=== PATIENT | male | born 1960 | race Caucasian/White ===

== ENCOUNTER 2022-02-28 10:26 | Outpatient (RCR) | payer BC, SELFPAY | END 2022-04-20 14:37 | disposition home or self-care (01) | PROVIDERS: PCP Family Medicine; Visit Provider Surgery | DX: M25.562 Pain in left knee (principal); Z51.89 Encounter for other specified aftercare | CPT/HCPCS: 97110; 97162 ==

== ENCOUNTER 2023-08-15 08:29 | Outpatient (CLI) | payer MEDICARE, BC, SELFPAY ==
--- OUTSIDE RECORDS SUMMARY | 2023-08-15 08:34 | XMS_ITS | Clinical Summary ---
Author Name Unknown Organization [address] [facility] Address [place], [place] [address] Care Team Providers Care Jet Blade Polisher Name Role Phone Matthew Lo MD Primary Care Provider [phone] Ihsan Arriaza MD Unavailable [phone] Allergies Active Allergy Reactions Criticality Noted Date Comments Mold Runny Nose 12/26/2017 Pollen Extracts Runny Nose 12/26/2017 Medications Medication Sig Dispensed Refills Start Date End Date Status FLONASE 50 MCG/ACTUATION NASAL SPRAYIndications:Domo rgic rhinitis, cause unspecified 2 spray in each nostril daily 3 5 05/01/2009 Active cholecalciferol (VITAMIN D3) 2,000 unit capsuleIndications:Vi tamin D deficiency,B12 deficiency Take 1 Capsule (2,000 units) by mouth once daily. 100 Capsule 3 12/27/2020 Active cyanocobalamin (Vitamin B-12) 1,000 mcg tabletIndications:B12 deficiency Take 1 Tablet (1,000 mcg) by mouth once daily. 100 Tablet 3 12/27/2020 Active albuterol HFA (PRO-AIR; VENTOLIN; PROVENTIL) 90 mcg/actuation inhalerIndications:Mi ld intermittent asthma without complication Inhale 1-2 Puffs by mouth every 4 hours if needed for Shortness Of Breath. 8.5 g 3 04/01/2022 Active atorvastatin (LIPITOR) 20 mg tabletIndications:Hyp erlipidemia, unspecified hyperlipidemia type Take 1 Tablet (20 mg) by mouth once daily. 90 Tablet 3 04/01/2022 Active fluticasone propion-salmeteroL (Advair Diskus) 100-50 mcg/dose diskus inhalerIndications:Mi ld intermittent asthma without complication Inhale 1 Puff by mouth two times daily. 3 Each 3 04/01/2022 Active allopurinoL (ZYLOPRIM) 300 mg tabletIndications:Gou t, unspecified cause, unspecified chronicity, unspecified site Take 1 Tablet (300 mg) by mouth once daily. 90 Tablet 3 06/20/2022 Active colchicine 0.6 mg tabletIndications:Gou t, unspecified cause, unspecified chronicity, unspecified site Take 1 Tablet (0.6 mg) by mouth 2 times daily if needed for Gout Pain. 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 TSI =6.7 Gout, unspecified 07/15/2016 Overview: Attack 07/01 right 1st MTP joint. Uric acid level 8.2. Hyperlipidemia 07/04/2016 Hyperthyroidism 09/29/2015 Overview: 11/2015 thyroid scan 71% homogeneous uptake c/w graves' 11/2015 start methimazole 12/2019- d/c methimazole Screen for colon cancer 05/08/2009 Overview: Colonoscopy 04/2009 normal repeat in 10 years Allergic rhinitis, cause unspecified 12/29/2006 Unspecified asthma(493.90) 12/29/2006 Immunizations Name Administration Dates Next Due Influenza A (H1N1), Inactivated 08/03/2009 Influenza, IIV3 (Age >=3 years) 05/01/2009,06/03 Influenza, IIV4 04/01/2022,,04/26/2019,2016,05/04/2016 Influenza,CCIIV4 PRESERV FREE 04/27/2020 Pneumococcal Conj 20-valent (Prevnar 20) 04/01/2022 Pneumococcal Poly,23-Valent (Pneumovax) 03/30/2021 Td (Age >=7 Years) 04/13/2004 Tdap 11/22/2018 Zoster (Shingrix-RZV, recombinant) 12/16/2019, Family History Medical History Relation Name Comments Heart Disease Father Age 81 Ablatio n and Pacemaker Other Father of Copd an d heart at 89 Heart Disease Maternal Aunt 60s Hyperlipidemia Mother Cancer Paternal Grandmother 70s unc ertain origin Relation Name Status Comments Father Maternal Aunt Mother Paternal Grandmother Social History Tobacco Use Types Packs/Day Years Used Date Smoking Tobacco: Never Smokeless Tobacco: Never Tobacco Cessation:Counseling Given: Yes Comments:nonsmoker Alcohol Use Standard Drinks/Week Comments Yes 7 (1 standard drink = 0.6 oz pur e alcohol) daily PHQ-2 Answer Date Recorded PHQ-2 TOTAL SCORE 0 03/30/2021 Social Connections Answer Date Recorded Frequency of Communication with Friends and Fami ly Not on file 07/17/2021 Alcohol Use Answer Date Recorded How often do you have a drink containing alcohol ? 2 02/21/2022 How many drinks containing a lcohol do you have on a typical day when you are drinking? 0 02/21/2022 How often do you have five or more drinks on one occasion? 1 02/21/2022 Financial Resource Strain Answer Date R ecorded Difficulty of Paying Living Expenses Not on file 07/17/2021 Difficulty of Paying Living Expenses Not on file 07/17/2021 Sex and Gender Information Value Date Recorded Sex Assigned at Not on file Gender Identity Not on file Sexual Orientation Not on file Obstetrics History Last Filed Vital Signs Vital Sign Reading Time Taken Comments Blood Pressure 138/72 12/02/2022 9:21 AM CDT Pulse 48 12/02/2022 9:21 AM CDT Temperature 36.7 ??C (98 ??F) 01/15/2020 9:07 AM CDT Respiratory Rate 12 12/02/2022 9:21 AM CDT Oxygen Saturation 98% 04/01/2022 8:01 AM CDT Inhaled Oxygen Concentration - - Weight 95.3 kg (210 lb) 12/02/2022 9:21 AM CDT Height 172.5 cm (5' 7.91) 04/01/2022 8:01 AM CD T Body Mass Index 32.01 04/01/2022 8:01 AM CDT Plan of Treatment Upcoming Encounters Date Type Department Care Team (Late st Contact Info) Description 11/24/2023 8:45 AM CDT Office Visit [facility] [address] [place] [address] Ihsan Arriaza MD [address] [place] [address] Health Maintenance Due Date Last Done Comments HIV for age 15-65 1973 Depression screening for age 12+ 03/30/2022 03/30/2021, 05/13/2019, 07/04/2016, Additional history exists BMI (ht and wt on same day) for age 18+ 04/01/2023 04/01/2022, 03/30/2021, 01/15/2020, Additional history exists Influenza for age 65+ 2023 04/01/2022 , 03/30/2021, 04/27/2020, Additional history exists Colonoscopy through age 75 05/09/202405/09, 05/09/2019, 05/08/2009, Additional history exists Lipids for age 45-75 04/01/2027 04/01/2022, 03/30/2021, 12/16/2019, Additional history exists Tetanus booster 11/22/2028 11/22/2018, 04/13/2004 Tdap Completed 11/22/2018 Hepatitis C screening for ag e 18-79 Completed 12/16/2019 Zoster (shingles) series for age 50+ Completed 12/16/2019, 05/07/2019 COVID-19 vaccine series Completed 03/26/20 22, 10/28/2020 (Completed outside of [facility]) Pneumococcal series for age 65+ Completed 2, 03/30/2021 Care Teams Jet Blade Polisher Relationship Specialty Start Date End Date Matthew Lo MD [address] [place] [address] PCP - General Family Practice 11/21/17 Ihsan Arriaza MD [address] [place] [address] Endocrinology Endocrinology 11/30/22
--- OUTSIDE RECORDS SUMMARY | 2023-08-15 08:34 | XMS_ITS | Encounter Summary ---
Author Name Unknown Organization [facility] Address [address] [place] [address] Care Team Providers Care Fuel Cell Binder Name Role Phone Ihsan Arriaza MD Unavailable [phone] Jerod Groves MD Unavailable [phone] Skinny Ruvalcaba MD Primary Care Provider + [phone] Jacobo Ocampo MD Unavailable [phone] Encounter Details Date Type Department Care Team (Late st Contact Info) Description 04/21/2020 [facility] Op[facility]mology [address] [place] [address] Jcaobo Ocampo MD [address] [place] [address] Social History Tobacco Use Types Packs/Day Years Used Date Smoking Tobacco: Never Smokeless Tobacco: Never Alcohol Use Standard Drinks/Week Comments Yes 0 (1 standard drink = 0.6 oz pur e alcohol) rarely PHQ-2 Answer Date Recorded PHQ-2 Score 0 09/02/2019 Sex and Gender Information Value Date Recorded Sex Assigned at Not on file Gender Identity Not on file Sexual Orientation Not on file documented as of this encounter Miscellaneous Notes * Telephone Encounter - Sheree Brice RN - 04/23/2020 11:02 AM CDT [facility]- Can you please call and add patient to Monday's Dr. Ocampo schedule? Post op follow up. If he doesn't answer it's ok to [facility] with appointment info. Thanks! Sheree Brice RN RN 11:03 AM 04/23/20 documented in this encounter Plan of Treatment Not on file documented as of this encounter Visit Diagnoses Not on filedocumented in this encounter Care Teams Fuel Cell Binder Relationship Specialty Start Date End Date Skinny Ruvalcaba MD PCP - General Family Practice 05/15/17 Ihsan Arriaza MD Internal Medicine 02/05/16 Jerod Groves MD Ophthalmology 02/05/16 Jacobo Ocampo MD [address] [place] [address] Assigned Surgical Provider 05/08/20 documented as of this encounter
--- OUTSIDE RECORDS SUMMARY | 2023-08-15 08:34 | XMS_ITS | Encounter Summary ---
Author Name Unknown Organization [facility] Address [address] [facility] [place] [address] Care Team Providers Care Oil Truck Driver Name Role Phone Ihsan Arriaza MD Unavailable [phone] Jerod Groves MD Unavailable [phone] Skinny Ruvalcaba MD Primary Care Provider [phone] Jacobo Ocampo MD Unavailable [phone] Encounter Details Date Type Department Care Team (Late st Contact Info) Description 04/22/2017 [facility] Medical [facility] [address] [place] [address] [address] Jerod Groves MD [address] [place], [place] [id number] Social History Tobacco Use Types Packs/Day Years Used Date Smoking Tobacco: Never Sex and Gender Information Value Date Recorded Sex Assigned at Not on file Gender Identity Not on file Sexual Orientation Not on file documented as of this encounter Plan of Treatment Not on file documented as of this encounter Visit Diagnoses Not on filedocumented in this encounter Additional Health Concerns Infection Onset Date Last Indicated Resolved Time Rule Out COVID-19 11/16/2019 11/16/2019 11/17/2019 9:33 PM CDT documented as of this encounter Care Teams Oil Truck Driver Relationship Specialty Start Date End Date Skinny Ruvalcaba MD PCP - General Family Practice 05/15/17 Ihsan Arriaza MD Internal Medicine 02/05/16 Jerod Groves MD Ophthalmology 02/05/16 Jacobo Ocampo MD [address] [place] [address] Assigned Surgical Provider 05/08/20 documented as of this encounter
--- OUTSIDE RECORDS SUMMARY | 2023-08-15 08:34 | XMS_ITS | Encounter Summary ---
Author Name Unknown Organization [place] Address [address] [facility] [place] [address] Care Team Providers Care Men'S And Boys' Clothing Salesperson Name Role Phone Ihsan Arriaza MD Unavailable [phone] Jerod Groves MD Unavailable [phone] Skinny Ruvalcaba MD Primary Care Provider [phone] Jacobo Ocampo MD Unavailable [phone] Encounter Details Date Type Department Care Team (Late st Contact Info) Description 01/30/2018 [facility] Medical Advice [facility] [address] [place] [address] [address] Jerod Groves MD [address] [place], [place] [address] Social History Tobacco Use Types Packs/Day Years Used Date Smoking Tobacco: Never Smokeless Tobacco: Never Sex and Gender Information Value [...] documented as of this encounter Care Teams Men'S And Boys' Clothing Salesperson Relationship Specialty Start Date End Date Skinny Ruvalcaba MD PCP - General Family Practice 05/15/17 Ihsan Arriaza MD Internal Medicine 02/05/16 Jerod Groves MD Ophthalmology 02/05/16 Jacobo Ocampo MD [address] [place] [address] Assigned Surgical Provider 05/08/20 documented as of this encounter
--- OUTSIDE RECORDS SUMMARY | 2023-08-15 08:34 | XMS_ITS | Encounter Summary ---
Author Name Unknown Organization [facility] Address [address] [place] [address] Care Team Providers Care Death Claim Examiner Name Role Phone Ihsan Arriaza MD Unavailable [phone] Jerod Groves MD Unavailable [phone] Skinny Ruvalcaba MD Primary Care Provider + [phone] Jacobo Ocampo MD Unavailable [phone] Encounter Details Date Type Department Care Team (Late st Contact Info) Description 01/21/2020 [facility] [address] [place] [address] [address] [place] [address] Jacobo Ocampo MD [address] [place] [address] Social History Tobacco Use Types Packs/Day [...] on file Sexual Orientation Not on file COVID-19 Exposure Response Date Recorded In the last month, have you been in contact with someone who was confirmed or suspected to have Coronavirus / COVID-19? No / Unsure 01/13/2020 7:54 AM CDT documented as of this encounter Plan of Treatment Not on file documented as of this encounter Visit Diagnoses Not on filedocumented in this encounter Care Teams Death Claim Examiner Relationship Specialty Start Date End Date Skinny Ruvalcaba MD PCP - General Family Practice 05/15/17 Ihsan Arriaza MD Internal Medicine 02/05/16 Jerod Groves MD Ophthalmology 02/05/16 Jacobo Ocampo MD [address] [place] [address] Assigned Surgical Provider 05/08/20 documented as of this encounter
--- OUTSIDE RECORDS SUMMARY | 2023-08-15 08:34 | XMS_ITS | Encounter Summary ---
Author Name Unknown Organization [facility] Address [address] [place] [address] Care Team Providers Care Furnace Attendant Name Role Phone Ihsan Arriaza MD Unavailable [phone] Jerod Groves MD Unavailable [phone] Skinny Ruvalcaba MD Primary Care Provider + [phone] Jacobo Ocampo MD Unavailable [phone] Reason for Visit * Reason Onset Date Comments Call Back 11/20/2019 Question on surg ical aftercare Encounter Details Date Type Department Care Team (Late st Contact Info) Description 11/20/2019 Telephone [facility] Ophthalmology [address] [place] [address] Jacobo Ocampo MD [address] [place] [address] Call Back (Question on surgical aftercare) Social History Tobacco Use Types Packs/Day Years [...] have Coronavirus / COVID-19? No / Unsure 11/20/2019 6:31 AM CDT documented as of this encounter Miscellaneous Notes * Telephone Encounter - Sheree Brice RN - 11/20/2019 1:04 PM CDT Called and spoke to Annie. Verified bolster would be removed at appointment on 11/25 @ 8:15. * Telephone Encounter - Shereen Tolentino - 11/20/2019 12:40 PM CDT [facility] Call Center Phone Message May a detailed message be left on voicemail: yes Reason for Call: Other: Pt 's Nataliia requesting call from clinic. She states pt had surgery this morning and she was reading the aftercare notes, but couldn't find information on the bolster for his right eye. Nataliia wanted to clarify when and/or if the bolster should be removed; please callher mobile to discuss. Action Taken: Message routed to: [facility] Eye Travel Screening: Not Applicable documented in this encounter Plan of Treatment Not on file documented as of this encounter Visit Diagnoses Not on filedocumented in this encounter Care Teams Furnace Attendant Relationship Specialty Start Date End Date Skinny Ruvalcaba MD PCP - General Family Practice 05/15/17 Ihsan Arriaza MD Internal Medicine 02/05/16 Jerod Groves MD Ophthalmology 02/05/16 Jacobo Ocampo MD [address] [place] [address] Assigned Surgical Provider 05/08/20 documented as of this encounter
--- OUTSIDE RECORDS SUMMARY | 2023-08-15 08:34 | XMS_ITS | Encounter Summary ---
Author Name Unknown Organization [facility] Address [address] [place] [address] Care Team Providers Care Operating Room Nurse Name Role Phone Ihsan Arriaza MD Unavailable [phone] Jerod Groves MD Unavailable [phone] Skinny Ruvalcaba MD Primary Care Provider + [phone] Jacobo Ocmapo MD Unavailable [phone] Encounter Details Date Type Department Care Team (Late st Contact Info) Description 01/28/2020 [facility] [address] [place] [address] [address] [place] [address] Darlyn Monterroso RN Social History Tobacco Use Types Packs/Day Years [...] have Coronavirus / COVID-19? No / Unsure 01/29/2020 10:19 AM CDT documented as of this encounter Plan of Treatment Not on file documented as of this encounter Visit Diagnoses Not on filedocumented in this encounter Care Teams Operating Room Nurse Relationship Specialty Start Date End Date Skinny Ruvalcaba MD PCP - General Family Practice 05/15/17 Ihsan Arriaza MD Internal Medicine 02/05/16 Jerod Groves MD Ophthalmology 02/05/16 Jacobo Ocampo MD [address] [place] [address] Assigned Surgical Provider 05/08/20 documented as of this encounter
--- OUTSIDE RECORDS SUMMARY | 2023-08-15 08:34 | XMS_ITS | Encounter Summary ---
Author Name Unknown Organization [facility] Address [address] [place] [address] Care Team Providers Care Dryer Feeder Name Role Phone Ihsan Arriaza MD Unavailable [phone] Jerod Groves MD Unavailable [phone] Skinny Ruvalcaba MD Primary Care Provider + [phone] Jacobo Ocampo MD Unavailable [phone] Encounter Details Date Type Department Care Team (Late st Contact Info) Description 11/18/2019 [facility] [address] [place] [address] [address] [place] [address] Faby Carter RN Social History Tobacco Use Types Packs/Day [...] on filedocumented in this encounter Care Teams Dryer Feeder Relationship Specialty Start Date End Date Skinny Ruvaclaba MD PCP - General Family Practice 05/15/17 Ihsan Arriaza MD Internal Medicine 02/05/16 Jerod Groves MD Ophthalmology 02/05/16 Jacobo Ocampo MD [address] [place] [address] Assigned Surgical Provider 05/08/20 documented as of this encounter
--- OUTSIDE RECORDS SUMMARY | 2023-08-15 08:34 | XMS_ITS | Encounter Summary ---
Author Name Unknown Organization [facility] [place] Address [address] [place] [address] Care Team Providers Care Customer Service And Sales Consultant Name Role Phone Ihsan Arriaza MD Unavailable [phone] Jerod Groves MD Unavailable [phone] Skinny Ruvalcaba MD Primary Care Provider + [phone] Jacobo Ocampo MD Unavailable [phone] Reason for Visit * Reason Onset Date Comments Appointment 03/02/2018 Pt new or return ? Encounter Details Date Type Department Care Team ([facility] st Contact Info) Description 03/02/2018 [facility] Ophthalmology [address] [place] [address] Jacobo Ocampo MD [address] [place] [address] Appointment (Pt new or return?) Social History Tobacco Use Types Packs/Day Years Used Date Smoking Tobacco: Never Smokeless Tobacco: Never Sex and Gender Information Value Date Recorded Sex Assigned at Not on file Gender Identity Not on file Sexual Orientation Not on file documented as of this encounter Miscellaneous Notes * Telephone Encounter - Tyson Riley - 03/02/2018 11:47 AM CDT [facility] Call Center Phone Message May a detailed message be left on voicemail: yes Reason for Call: Other: Pt was suggested to be seen with Dr. Ocampo. No appts within range were available for thyroid appt, but has sooner in plastics template. Could he be scheduled as return plastics even though he has only seen Dr. Ocampo as thyroid pt? Please call pt if this is possible andcan schedule in march. Action Taken: Message routed to: [facility] Ophthamology documented in this encounter Plan of Treatment Not on file documented as of this encounter Visit Diagnoses Not on filedocumented in this encounter Additional Health Concerns Infection Onset Date Last Indicated Resolved Time Rule Out COVID-19 11/16/2019 11/16/2019 11/17/2019 9:33 PM CDT documented as of this encounter Care Teams Customer Service And Sales Consultant Relationship Specialty Start Date End Date Skinny Ruvalcaba MD PCP - General Family Practice 05/15/17 Ihsan Arriaza MD Internal Medicine 02/05/16 Jerod Groves MD Ophthalmology 02/05/16 Jacobo Ocampo MD [address] [place] [address] Assigned Surgical Provider 05/08/20 documented as of this encounter
--- OUTSIDE RECORDS SUMMARY | 2023-08-15 08:34 | XMS_ITS | Referral Summary ---
Author Name Unknown Organization [facility] Address [address] [place] [address] Care Team Providers Care Professor Of Religion Name Role Phone Ihsan Arriaza MD Unavailable [phone] Jerod Groves MD Unavailable [phone] Skinny Ruvalcaba MD Primary Care Provider [phone] Allergies Active Allergy Reactions Criticality Noted Date Comments Mold Other (See Comments) 12/26/2017 Pollen Extract Other (See Comments) 12/26/2017 Medications Medication Sig Dispensed Refills Start Date End Date Status Fluticasone Propionate (FLONASE NA) 0 Active METHIMAZOLE PO Take 0.5 half-tab by mouth 0 Active albuterol (PROAIR HFA/PROVENTIL HFA/VENTOLIN HFA) 108 (90 BASE) MCG/ACT Inhaler Inhale 2 puffs into the lungs 0 07/04/2016 Active fluticasone-salmeter ol (ADVAIR DISKUS) 100-50 MCG/DOSE diskus inhaler Inhale 1 puff into the lungs 0 05/09/2016 Active atorvastatin (LIPITOR) 20 MG tablet Take 20 mg by mouth 0 11/22/2017 Active allopurinol (ZYLOPRIM) 300 MG tablet Take 300 mg by mouth 0 11/10/2017 Active prednisoLONE acetate (PRED FORTE) 1 % ophthalmic suspensionIndication s:Postoperative eye state Instill 1 drop into operative eye(s) four times a day. Do NOT start drops until instructed by Surgeon. 10 mL 0 05/20/2019 Active oxyCODONE (ROXICODONE) 5 MG tabletIndications:Ey elid retraction, unspecified laterality Take 1-2 tablets (5-10 mg) by mouth every 4 hours as needed for moderate to severe pain 6 tablet 0 11/20/2019 Active HYDROcodone-acetamin ophen (NORCO) 5-325 MG tabletIndications:Ey elid retraction, unspecified laterality,Thyroid eye disease Take 1-2 tablets by mouth every 4 hours as needed for moderate to severe pain 10 tablet 0 01/29/2020 Active Active Problems Problem Noted Date Diagnosed Date Eyelid retraction, unspecified laterality 2019 Overview: Added automatically from request for surgery [id number] Thyroid eye disease 12/13/2018 Social History Tobacco Use Types Packs/Day Years Used Date Smoking Tobacco: Never Smokeless Tobacco: Never Alcohol Use Standard Drinks/Week Comments Yes 0 (1 standard drink = 0.6 oz pur e alcohol) rarely PHQ-2 Answer Date Recorded PHQ-2 Score 0 09/02/2019 Adolescent Education Answer Date Record ed Getting School Help Needed Not on file 04/23 Sex and Gender Information Value Date Recorded Sex Assigned at Not on file Gender Identity Not on file Sexual Orientation Not on file Last Filed Vital Signs Vital Sign Reading Time Taken Comments Blood Pressure 131/64 01/29/2020 1:50 PM CDT Pulse 48 01/29/2020 1:50 PM CDT Temperature 36.4 ??C (97.6 ??F) 01/29/2020 1:33 PM CD T Respiratory Rate 16 01/29/2020 1:50 PM CDT Oxygen Saturation 99% 01/29/2020 1:50 PM CDT Inhaled Oxygen Concentration - - Weight 91.2 kg (201 lb) 01/29/2020 10:00 AM CDT Height 172.1 cm (5' 7.76) 01/29/2020 10:00 AM C DT Body Mass Index 30.78 01/29/2020 10:00 AM CDT Plan of Treatment Not on file Medical Devices Implanted Type Area Legal Director Device Identifier Shelf Expiration Date Model / Serial / Lot Graft Dermal Alloderm 1x4cm Charge Per Sq Cm= 4 Units Implanted:Qty: 1 on 11/20/2019 by Jacobo Ocampo MD at [facility] [place] Bone/Tiss ue/Biolog ic Right: Eye [employer] 07/16/2021 [id number] / / [id number] Care Teams Professor Of Religion Relationship Specialty Start Date End Date Skinny Ruvalcaba MD PCP - General Family Practice 05/15/17 Ihsan Arriaza MD Internal Medicine 02/05/16 Jerod Groves MD Ophthalmology 02/05/16
--- OUTSIDE RECORDS SUMMARY | 2023-08-15 08:34 | XMS_ITS | Clinical Summary ---
Author Name Unknown Organization [place] Address [address] [place] [address] Care Team Providers Care Social Media Intern Name Role Phone Ihsan Arriaza MD Unavailable [phone] Jerod Groves MD Unavailable [phone] Skinny Ruvalcaba MD Primary Care Provider [phone] Allergies Active Allergy Reactions Criticality Noted Date [...] Overview: Added automatically from request for surgery [id number] Thyroid eye disease 12/13/2018 Family History Medical History Relation Comments Glaucoma Mother Macular Degeneration Mother Amblyopia No family hx of Retinal detachment No family hx of Relation Status Comments Mother Social History Tobacco Use Types Packs/Day Years [...] 01/29/2020 10:00 AM CDT Plan of Treatment Health Maintenance Due Date Last Done Comments ADVANCE CARE PLANNING 1960 ANNUAL REVIEW OF HM ORDERS 1958 CT COLONOGRAPHY 1958 FIT 1958 FLEX SIG 1958 sDNA (Cologuard) 1958 COVID-19 Vaccine (#1) 1958 COLONOSCOPY 1968 COLORECTAL CANCER SCREENING 1968 HIV SCREENING 1973 HEPATITIS C SCREENING 1976 LIPID 1993 DTAP/TDAP/TD IMMUNIZATION (1 - Tdap) 04/14/2004 04/13/2004 RSV VACCINE ( & 60+) (1 - 1-dose 60+ series) 2018 ZOSTER IMMUNIZATION (2 of 2) 07/02/2019 05/07/2019 INFLUENZA VACCINE (#1) 2023 9, 03/31/2017, 05/04/2016, Additional history exists AORTIC ANEURYSM SCREENING (SYSTEM ASSIGNED) 2023 FALL RISK ASSESSMENT 2023 MEDICARE ANNUAL WELLNESS VISIT 2023 Pneumococcal Vaccine: 65+ Years (1 of 1 - PCV) 2023 PHQ-2 (once per calendar year) 2023 09/02/2019, 03/04/2019 HPV IMMUNIZATION Aged Out No longer e ligible based on patient's age to complete this topic IPV IMMUNIZATION Aged Out No longer e ligible based on patient's age to complete this topic MENINGITIS IMMUNIZATION Aged Out No l onger eligible based on patient's age to complete this topic RSV MONOCLONAL ANTIBODY Aged Out No l onger eligible based on patient's age to complete this topic Medical Devices Implanted Type Area Block Splitter Operator Device Identifier Shelf Expiration Date Model / Serial / Lot Graft Dermal Alloderm 1x4cm Charge Per Sq Cm= 4 Units Implanted:Qty: 1 on 11/20/2019 by Jacobo Ocampo MD at [facility] [place] Bone/Tiss ue/Biolog ic Right: Eye [employer] 07/16/2021 [id number] / / [id number] Care Teams Social Media Intern Relationship Specialty Start Date End Date Skinny Ruvalcaba MD PCP - General Family Practice 05/15/17 Ihsan Arriaza MD Internal Medicine 02/05/16 Jerod Groves MD Ophthalmology 02/05/16
--- OUTSIDE RECORDS SUMMARY | 2023-08-15 08:34 | XMS_ITS | Encounter Summary ---
Author Name Unknown Organization [place] Address [address] [place] [address] Care Team Providers Care Senior Marketing Engineer Name Role Phone Ihsan Arriaza MD Unavailable [phone] Jerod Groves MD Unavailable [phone] Skinny Ruvalcaba MD Primary Care Provider + [phone] Jacobo Ocampo MD Unavailable [phone] Encounter Details Date Type Department Care Team (Late st Contact Info) Description 11/15/2019 [facility] [address] [facility] 4th [place] [address] Kosta [place] Social History Tobacco Use Types Packs/Day Years [...] have Coronavirus / COVID-19? No / Unsure 11/18/2019 2:00 PM CDT documented as of this encounter Plan of Treatment Not on file documented as of this encounter Visit Diagnoses Not on filedocumented in this encounter Additional Health Concerns Infection Onset Date Last Indicated Resolved Time Rule Out COVID-19 11/16/2019 11/16/2019 11/17/2019 9:33 PM CDT documented as of this encounter Care Teams Senior Marketing Engineer Relationship Specialty Start Date End Date Skinny Ruvalcaba MD PCP - General Family Practice 05/15/17 Ihsan Arriaza MD Internal Medicine 02/05/16 Jerod Groves MD Ophthalmology 02/05/16 Jacobo Ocampo MD [address] [place] [address] Assigned Surgical Provider 05/08/20 documented as of this encounter
--- OUTSIDE RECORDS SUMMARY | 2023-08-15 08:34 | XMS_ITS | Encounter Summary ---
Author Name Unknown Organization [place] Address [address] [place] [address] Care Team Providers Care Manager Hematology Name Role Phone Ihsan Arriaza MD Unavailable [phone] Jerod Groves MD Unavailable [phone] Skinny Ruvalcaba MD Primary Care Provider + [phone] Jacobo Ocampo MD Unavailable [phone] Encounter Details Date Type Department Care Team (Late st Contact Info) Description 11/18/2019 [place] [facility] Procedure [facility] [address] [place] [address] 5th [place] [address] Faby Carter RN Social History [...] on filedocumented in this encounter Care Teams Manager Hematology Relationship Specialty Start Date End Date Skinny Ruvalcaba MD PCP - General Family Practice 05/15/17 Ihsan Arriaza MD Internal Medicine 02/05/16 Jerod Groves MD Ophthalmology 02/05/16 Jacobo Ocampo MD 9 [place] [address] Assigned Surgical Provider 05/08/20 documented as of this encounter
--- OUTSIDE RECORDS SUMMARY | 2023-08-15 08:34 | XMS_ITS | Encounter Summary ---
Author Name Unknown Organization [place] Address [address] [place] [address] Care Team Providers Care Trailhead Maintenance Worker Name Role Phone Ihsan Arriaza MD Unavailable [phone] Jerod Groves MD Unavailable [phone] Skinny Ruvalcaba MD Primary Care Provider + [phone] Jacobo Ocampo MD Unavailable [phone] Encounter Details Date Type Department Care Team (Late st Contact Info) Description 11/14/2018 [facility], Ambulatory 9 [place] [address] Марина Falk [facility] Social History Tobacco Use Types Packs/Day Years [...] documented as of this encounter Care Teams Trailhead Maintenance Worker Relationship Specialty Start Date End Date Skinny Ruvalcaba MD PCP - General Family Practice 05/15/17 Ihsan Arriaza MD Internal Medicine 02/05/16 Jerod Groves MD Ophthalmology 02/05/16 Jacobo Ocampo MD [address] [place] [address] Assigned Surgical Provider 05/08/20 documented as of this encounter
--- OUTSIDE RECORDS SUMMARY | 2023-08-15 08:34 | XMS_ITS | Encounter Summary ---
Author Name Unknown Organization [place] Address [address] [place] [address] Care Team Providers Care Insurance Premium Auditor Name Role Phone Ihsan Arriaza MD Unavailable [phone] Jerod Groves MD Unavailable [phone] Skinny Ruvalcaba MD Primary Care Provider + [phone] Jacobo Ocampo MD Unavailable [phone] Encounter Details Date Type Department Care Team (Late st Contact Info) Description 05/24/2019 [facility] [address] [facility] [address] [place] [address] Candace Cyr Social History Tobacco Use Types Packs/Day Years Used Date Smoking Tobacco: Never Smokeless Tobacco: Never Alcohol Use Standard Drinks/Week Comments Yes 0 (1 standard drink = 0.6 oz pur e alcohol) rarely PHQ-2 Answer Date Recorded PHQ-2 Score 0 03/04/2019 Sex and Gender Information Value Date Recorded [...] documented as of this encounter Care Teams Insurance Premium Auditor Relationship Specialty Start Date End Date Skinny Ruvalcaba MD PCP - General Family Practice 05/15/17 Ihsan Arriaza MD Internal Medicine 02/05/16 Jerod Groves MD Ophthalmology 02/05/16 Jacobo Ocampo MD 9 [place] [address] Assigned Surgical Provider 05/08/20 documented as of this encounter
== END 2023-08-15 08:30 | disposition home or self-care (01) ==
PROVIDERS: PCP Family Medicine; Visit Provider Family Medicine
DX: E05.90 Thyrotoxicosis, unspecified without thyrotoxic crisis or storm (principal); E78.2 Mixed hyperlipidemia; Z12.5 Encounter for screening for malignant neoplasm of prostate; M10.9 Gout, unspecified
CPT/HCPCS: 80053; 80061; 84443; 84550; G0103

== ENCOUNTER 2023-10-04 08:18 | Outpatient (CLI) | payer MEDICARE, BC, SELFPAY | END 2023-10-04 08:19 | disposition home or self-care (01) | LOC: NFLDREF 10-06 08:37 | PROVIDERS: PCP Family Medicine; Referring Provider Family Medicine; Visit Provider Family Medicine | DX: E78.5 Hyperlipidemia, unspecified (principal); R03.0 Elevated blood-pressure reading, without diagnosis of hypertension; E05.90 Thyrotoxicosis, unspecified without thyrotoxic crisis or storm; R73.01 Impaired fasting glucose | CPT/HCPCS: 80053; 80061; 84443 ==

== ENCOUNTER 2023-10-23 08:20 | Outpatient (CLI) | payer MEDICARE, BC, SELFPAY ==
--- OUTSIDE RECORDS SUMMARY | 2023-10-31 07:17 | XMS_ITS | Encounter Summary ---
Author Name Unknown Organization [place] Address [address] [place] [address] Care Team Providers Care Manager Critical Care Unit Name Role Phone Ihsan Arriaza MD Unavailable [phone] Jerod Groves MD Unavailable [phone] Skinny Ruvalcaba MD Primary Care Provider + [phone] Jacobo Ocampo MD Unavailable [phone] Encounter Details Date Type Department Care Team (Late st Contact Info) Description 11/14/2018 [facility] Care [facility]ination, Ambulatory 9 [place] [address] Марина Falk [facility] Social History Tobacco Use Types Packs/Day Years [...] documented as of this encounter Care Teams Manager Critical Care Unit Relationship Specialty Start Date End Date Skinny Ruvalcaba MD PCP - General Family Practice 05/15/17 Ihsan Arriaza MD Internal Medicine 02/05/16 Jerod Groves MD Ophthalmology 02/05/16 Jacobo Ocampo MD [address] [place] [address] Assigned Surgical Provider 05/08/20 documented as of this encounter
--- OUTSIDE RECORDS SUMMARY | 2023-10-31 07:17 | XMS_ITS | Encounter Summary ---
Author Name Unknown Organization [place] Address [address] [place] [address] Care Team Providers Care Non Categorical Preschool Teacher Name Role Phone Ihsan Arriaza MD Unavailable [phone] Jerod Groves MD Unavailable [phone] Skinny Ruvalcaba MD Primary Care Provider + [phone] Jacobo Ocampo MD Unavailable [phone] Encounter Details Date Type Department Care Team (Late st Contact Info) Description 01/21/2020 [facility] [address] [place] [address] 5th [place] [address] Jacobo Ocampo MD [address] [place] [address] Social History Tobacco Use Types Packs/Day [...] on filedocumented in this encounter Care Teams Non Categorical Preschool Teacher Relationship Specialty Start Date End Date Skinny Ruvalcaba MD PCP - General Family Practice 05/15/17 Ihsan Arriaza MD Internal Medicine 02/05/16 Jerod Groves MD Ophthalmology 02/05/16 Jacobo Ocampo MD [address] [place] [address] Assigned Surgical Provider 05/08/20 documented as of this encounter
--- OUTSIDE RECORDS SUMMARY | 2023-10-31 07:17 | XMS_ITS | Encounter Summary ---
Author Name Unknown Organization [place] Address [address] [place] [address] Care Team Providers Care Outdoor Landscape Architect Name Role Phone Ihsan Arriaza MD Unavailable [phone] Jerod Groves MD Unavailable [phone] Skinny Ruvalcaba MD Primary Care Provider + [phone] Jacobo Ocampo MD Unavailable [phone] Encounter Details Date Type Department Care Team (Late st Contact Info) Description 11/18/2019 [facility] [address] [place] [address] 5th [place] [address] Faby Carter, RN Social History Tobacco Use Types Packs/Day [...] on filedocumented in this encounter Care Teams Outdoor Landscape Architect Relationship Specialty Start Date End Date Skinny Ruvalcaba MD PCP - General Family Practice 05/15/17 Ihsan Arriaza MD Internal Medicine 02/05/16 Jerod Groves MD Ophthalmology 02/05/16 Jacobo Ocampo MD [address] [place] [address] Assigned Surgical Provider 05/08/20 documented as of this encounter
--- OUTSIDE RECORDS SUMMARY | 2023-10-31 07:17 | XMS_ITS | Clinical Summary ---
Author Name Unknown Organization [place] Address [address] [place] [address] Care Team Providers Care Transportation Museum Helper Name Role Phone Ihsan Arriaza MD Unavailable [phone] Jerod Groves MD Unavailable [phone] Skinny Ruvalcaba MD Primary Care Provider [phone] Allergies Active Allergy Reactions Criticality Noted Date Comments Mold Other (See Comments) 12/26/2017 Pollen Extract Other (See Comments) 12/26/2017 Medications Medication Sig Dispensed Refills Start Date End Date Status Fluticasone Propionate (FLONASE NA) Active METHIMAZOLE PO Take 0.5 half-tab by mouth Active albuterol (PROAIR HFA/PROVENTIL HFA/VENTOLIN HFA) 108 (90 BASE) MCG/ACT Inhaler Inhale 2 puffs into the lungs 07/04/2016 Active fluticasone-salmeter ol (ADVAIR DISKUS) 100-50 MCG/DOSE diskus inhaler Inhale 1 puff into the lungs 05/09/2016 Active atorvastatin (LIPITOR) 20 MG tablet Take 20 mg by mouth 11/22/2017 Active allopurinol (ZYLOPRIM) 300 MG tablet Take 300 mg by mouth 11/10/2017 Active prednisoLONE acetate (PRED FORTE) 1 % ophthalmic suspensionIndication s:Postoperative eye state Instill 1 drop into operative eye(s) four times a day. Do NOT start drops until instructed by Surgeon. 10 mL 05/20/2019 Active oxyCODONE (ROXICODONE) 5 MG tabletIndications:Ey elid retraction, unspecified laterality Take 1-2 tablets (5-10 mg) by mouth every 4 hours as needed for moderate to severe pain 6 tablet 11/20/2019 Active HYDROcodone-acetamin ophen (NORCO) 5-325 MG tabletIndications:Ey elid retraction, unspecified laterality,Thyroid eye disease Take 1-2 tablets by mouth every 4 hours as needed for moderate to severe pain 10 tablet 01/29/2020 Active Active Problems Problem Noted Date Diagnosed Date Eyelid retraction 09/03/2019 Overview: Added automatically from request for surgery [id number] Thyroid eye disease 12/13/2018 Family History Medical [...] on file Medical Devices Implanted Type Area Heavy Equipment Engine Mechanic Device Identifier Shelf Expiration Date Model / Serial / Lot Graft Dermal Alloderm 1x4cm Charge Per Sq Cm= 4 Units Implanted:Qty: 1 on 11/20/2019 by Jacobo Ocampo MD at [facility] [place] Bone/Tiss ue/Biolog ic Right: Eye [employer] 07/16/2021 [id number] / / [id number] Care Teams Transportation Museum Helper Relationship Specialty Start Date End Date Skinny Ruvalcaba MD PCP - General Family Practice 05/15/17 Ihsan Arriaza MD Internal Medicine 02/05/16 Jerod Groves MD Ophthalmology 02/05/16
--- OUTSIDE RECORDS SUMMARY | 2023-10-31 07:17 | XMS_ITS | Encounter Summary ---
Author Name Unknown Organization [place] Address [address] [place] [address] Care Team Providers Care Blanket Cutting Machine Operator Name Role Phone Ihsan Arriaza MD Unavailable [phone] Jerod Groves MD Unavailable [phone] Skinny Ruvalcaba MD Primary Care Provider + [phone] Jacobo Ocampo MD Unavailable [phone] Encounter Details Date Type Department Care Team (Late st Contact Info) Description 11/15/2019 [facility] Ophthalmology 9 [facility] 4th [place] [address] Kosta [place] Social History Tobacco [...] documented as of this encounter Care Teams Blanket Cutting Machine Operator Relationship Specialty Start Date End Date Skinny Ruvalcaba MD PCP - General Family Practice 05/15/17 Ihsan Arriaza MD Internal Medicine 02/05/16 Jerod Groves MD Ophthalmology 02/05/16 Jacobo Ocampo MD [address] [place] [address] Assigned Surgical Provider 05/08/20 documented as of this encounter
--- OUTSIDE RECORDS SUMMARY | 2023-10-31 07:17 | XMS_ITS | Encounter Summary ---
Author Name Unknown Organization [place] Address [address] [place] [address] Care Team Providers Care Plant Operator Name Role Phone Ihsan Arriaza MD Unavailable [phone] Jerod Groves MD Unavailable [phone] Skinny Ruvalcaba MD Primary Care Provider + [phone] Jacobo Ocampo MD Unavailable [phone] Encounter Details Date Type Department Care Team (Late st Contact Info) Description 11/18/2019 [facility] Surgery and Procedure Center [address] [place] [address] 5th [place] [address] Faby Carter, RN Social History [...] on filedocumented in this encounter Care Teams Plant Operator Relationship Specialty Start Date End Date Skinny Ruvalcaba MD PCP - General Family Practice 05/15/17 Ihsan Arriaza MD Internal Medicine 02/05/16 Jerod Groves MD Ophthalmology 02/05/16 Jacobo Ocampo MD 9 [place] [address] Assigned Surgical Provider 05/08/20 documented as of this encounter
--- OUTSIDE RECORDS SUMMARY | 2023-10-31 07:17 | XMS_ITS | Encounter Summary ---
Author Name Unknown Organization [place] Address [address] [place] [address] Care Team Providers Care Administrative Representative Name Role Phone Ihsan Arriaza MD Unavailable [phone] Jerod Groves MD Unavailable [phone] Skinny Ruvalcaba MD Primary Care Provider + [phone] Jacobo Ocampo MD Unavailable [phone] Reason for Visit * Reason Onset Date Comments Appointment 03/02/2018 Pt new or return ? Encounter Details Date Type Department Care Team ([facility] st Contact Info) Description 03/02/2018 [facility] Ophthalmology [address] [place] [address] Jacobo Ocampo MD [address] [place] [address] Appointment (Pt new or return?) Social History Tobacco Use Types Packs/Day Years Used Date Smoking Tobacco: Never Smokeless Tobacco: Never Sex and Gender Information Value Date Recorded Sex Assigned at Not on file Gender Identity Not on file Sexual Orientation Not on file documented as of this encounter Miscellaneous Notes * Telephone Encounter - Tyson Riley - 03/02/2018 11:47 AM CDT [facility] Call Center Phone Message May a [...] documented as of this encounter Care Teams Administrative Representative Relationship Specialty Start Date End Date Skinny Ruvalcaba MD PCP - General Family Practice 05/15/17 Ihsan Arriaza MD Internal Medicine 02/05/16 Jerod Groves MD Ophthalmology 02/05/16 Jacobo Ocampo MD 9 [place] [address] Assigned Surgical Provider 05/08/20 documented as of this encounter
--- OUTSIDE RECORDS SUMMARY | 2023-10-31 07:17 | XMS_ITS | Encounter Summary ---
Author Name Unknown Organization [place] Address [address] [place] [address] Care Team Providers Care Kiln Burner Helper Name Role Phone Ihsan Arriaza MD Unavailable [phone] Jerod Groves MD Unavailable [phone] Skinny Ruvalcaba MD Primary Care Provider + [phone] Jacobo Ocampo MD Unavailable [phone] Reason for Visit * Reason Onset Date Comments Call Back 11/20/2019 Question on surg ical aftercare Encounter Details Date Type Department Care Team (Late st Contact Info) Description 11/20/2019 Telephone [facility] Ophthalmology [address] [place] [address] Jacobo Ocampo MD [address] [place] [address] Call Back (Question on surgical aftercare) [...] Shereen Tolentino - 11/20/2019 12:40 PM CDT [facility] Call Center Phone Message May a detailed [...] Message routed to: [facility] Eye Travel Screening: Not Applicable documented in this encounter Plan of Treatment Not on file documented as of this encounter Visit Diagnoses Not on filedocumented in this encounter Care Teams Kiln Burner Helper Relationship Specialty Start Date End Date Skinny Ruvalcaba MD PCP - General Family Practice 05/15/17 Ihsan Arriaza MD Internal Medicine 02/05/16 Jerod Groves MD Ophthalmology 02/05/16 Jacobo Ocampo MD [address] [place] [address] Assigned Surgical Provider 05/08/20 documented as of this encounter
--- OUTSIDE RECORDS SUMMARY | 2023-10-31 07:17 | XMS_ITS | Encounter Summary ---
Author Name Unknown Organization [place] Address [facility] [place] [address] Care Team Providers Care Director Market Intelligence Name Role Phone Ihsan Arriaza MD Unavailable [phone] Jerod Groves MD Unavailable [phone] Skinny Ruvalcaba MD Primary Care Provider [phone] Jacobo Ocampo MD Unavailable [phone] Encounter Details Date Type Department Care Team (Late st Contact Info) Description 04/22/2017 [facility] [address] [place] [address] [address] Jerod Groves MD [address] [place], [place] [address] Social History Tobacco Use Types Packs/Day Years [...] documented as of this encounter Care Teams Director Market Intelligence Relationship Specialty Start Date End Date Skinny Ruvalcaba MD PCP - General Family Practice 05/15/17 Ihsan Arriaza MD Internal Medicine 02/05/16 Jerod Groves MD Ophthalmology 02/05/16 Jacobo Ocampo MD [address] [place] [address] Assigned Surgical Provider 05/08/20 documented as of this encounter
--- OUTSIDE RECORDS SUMMARY | 2023-10-31 07:17 | XMS_ITS | Encounter Summary ---
Author Name Unknown Organization [place] Address [address] [place] [address] Care Team Providers Care Felling Machine Operator Name Role Phone Ihsan Arriaza MD Unavailable [phone] Jerod Groves MD Unavailable [phone] Skinny Ruvalcaba MD Primary Care Provider + [phone] Jacobo Ocampo MD Unavailable [phone] Encounter Details Date Type Department Care Team (Late st Contact Info) Description 04/21/2020 [facility] Advice [facility] Ophthalmology [address] [place] [address] Jacobo Ocampo MD [address] [place] [address] Social History Tobacco Use Types Packs/Day [...] encounter Miscellaneous Notes * Telephone Encounter - Sheere Brice RN - 04/23/2020 11:02 AM CDT [place]- Can you please call and add patient to Monday's Dr. Ocampo schedule? Post op follow up. If he doesn't answer it's ok to [facility] with appointment info. Thanks! Sheree Brice RN RN 11:03 AM 04/23/20 documented in this encounter Plan of Treatment Not on file documented as of this encounter Visit Diagnoses Not on filedocumented in this encounter Care Teams Felling Machine Operator Relationship Specialty Start Date End Date Skinny Ruvalcaba MD PCP - General Family Practice 05/15/17 Ihsan Arriaza MD Internal Medicine 02/05/16 Jerod Groves MD Ophthalmology 02/05/16 Jacobo Ocampo MD [address] [place] [address] Assigned Surgical Provider 05/08/20 documented as of this encounter
--- OUTSIDE RECORDS SUMMARY | 2023-10-31 07:17 | XMS_ITS | Clinical Summary ---
Author Name Unknown Organization [employer] [facility] [employer] [facility] Address [place], [place] [address] Care Team Providers Care Shovel Handle Assembler Name Role Phone Matthew Lo MD Primary Care Provider [phone] Ihsan Arriaza MD Unavailable [phone] Allergies Active Allergy Reactions Criticality Noted Date [...] Description 11/24/2023 8:45 AM CDT Office Visit [facility] [address] [place] [address] Ihsan Arriaza MD [address] [place] [address] Health Maintenance Due Date Last Done Comments HIV for age 15-65 1973 Depression screening for age 12+ 03/30/2022 03/30/2021, 05/13/2019, 07/04/2016, Additional history exists BMI (ht and wt on same day) for age 18+ 04/01/2023 04/01/2022, 03/30/2021, 01/15/2020, Additional history exists Influenza for age 65+ 03/17/2024 04/01/2022 , 03/30/2021, 04/27/2020, Additional history exists [...] Completed 03/26/20 22, 10/28/2020 (Completed outside of [facility]) Pneumococcal series for age 65+ Completed 2, 03/30/2021 Procedures Procedure Name Priority Date/Time Associated Diagnosis Comments LIPID PANEL Routine 04/01/2022 8:51 AM CDT Hyperlipidemia, unspecified hyperlipidemia type ANTI HCV Routine 12/16/2019 10:46 AM CDT Need for hepatitis C screening test COLONOSCOPY 05/09/2019 7:50 AM CDT from Last 3 Months or Most Recently Relevant to Health Maintenance Results * (ABNORMAL) LIPID PANEL (04/01/2022 8:51 AM CDT) CHOLESTEROL,TOTAL 161 100 - 199 mg/dL 04/02/2022 10:50 AM CDT [facility] TRIGLYCERIDES 106 <150 mg/dL 04/02/2022 10:50 AM CDT [facility] HDL CHOLESTEROL 40(L) >40 mg/dL 10:50 AM CDT [facility] NON-HDL CHOLESTEROL 121 <145 mg/dl 04/02/2022 10:50 AM CDT [facility] CHOL/HDL RATIO 4.03 <4.50 04/02/2022 10:50 AM CDT [facility] LDL CHOLESTEROL 100 <=130 mg/dL 04/02/2022 10:50 AM CDT [facility] VLDL CHOLESTEROL 21 <=30 mg/dL 04/02/2022 10:50 AM CDT [facility] PROVIDER ORDERED STATUS RANDOM 04/02/2022 10:50 AM CDT [facility] Blood BLOOD SPECIMEN / Unknown Venipuncture / Unknown 04/01/2022 8:51 AM CDT 04/01/2022 8:53 AM CDT Matthew Lo MD CHEMISTRY [facility] [address] [place] [address], * ANTI HCV (12/16/2019 10:46 AM CDT) HEPATITIS C ANTIBODY Non-React charlie Non-React charlie 12/16/2019 5:01 PM CDT [facility] Comment:Antibodies to HCV no t detected; does not exclude the possibility of exposure to HCV. Blood BLOOD SPECIMEN / Unknown Venipuncture / Unknown 12/16/2019 10:46 AM CDT 12/16/2019 10:46 AM CDT Matthew Lo MD SEND OUTS [facility] [address] [place] [address], [place] * COLONOSCOPY (05/09/2019 7:50 AM CDT) 05/09/2019 7:50 AM CDT Narrative Transcriptions Ricki Banegas MD - 05/09/2019 8:33 AM CDT Patient Name: Errol Bacon Procedure Date: 05/09/2019 Gender: Male Date of : 1960 Admit Type: Outpatient Procedure: Colonoscopy Proceduralist: Ricki Banegas MD , Morena Velez (Nurse) Indications/Pre-Op Diagnosis: Screening for colorectal malignant neoplasm, Last colonoscopy: April 2009 Medications: Fentanyl 100 micrograms IV, Midazolam 2 mgIV, The level of sedation administered wasmoderate Procedure Description: The patient had risks, benefits and alternatives explained to andgave informed consent. The patient had a stable cardiopulmonary status and judged an adequate candidate for conscious sedation. The [id number] was passed through the anus and advanced tothe cecum, identified by appendiceal orifice and ileocecal valve. The colonoscopy was performed without difficulty. The patient toleratedthe procedure well. The quality of the bowel preparation was good. The ileocecal valve, appendiceal orifice, and rectum were photographed. Complications: No immediate complications. Estimated Blood Loss & Specimen: Estimated blood loss: none. Specimen collected - Yes and sent to Laboratory Findings: The perianal and digital rectal examinations were normal. A 5 mm polyp was found in the ileocecal valve. The polyp was sessile. The polyp was removed with a cold snare. Resection and retrieval were complete. A 4 mm polyp was found in the descending colon. The polyp wassessile. The polyp was removed with a cold snare. Resection and retrieval were complete. The exam was otherwise without abnormality on direct and retroflexion views. Impressions/Post-Op Diagnosis: - One 5 mm polyp at the ileocecal valve, removed with a cold snare. Resected and retrieved. - One 4 mm polyp in the descending colon, removed with a cold snare. Resected and retrieved. - The examination was otherwise normal on direct and retroflexionviews. Recommendation: - Patient has a contact number available for emergencies. The signsand symptoms of potential delayed complications were discussed with the patient. Return to normal activities tomorrow. Written discharge instructions were provided to the patient. - Resume previous diet. - Continue present medications. - Await pathology results. - Repeat colonoscopy is recommended. The colonoscopy date will be determined after pathology results from today's exam become available for review. Moderate Sedation: Moderate (conscious) sedation was administered by the endoscopy nurse and supervised by the endoscopist. The following parameters were monitored: oxygen saturation, heart rate, respiratory rate, blood pressure, adequacy of pulmonary ventilation and reponse to care. [facility] flow[facility]ets and nursing notes for moderate sedation details. Total physician intraservice time was 21 minutes. Ricki Banegas MD 05/09/2019 8:33:01 AM This report has been signed electronically. Note Initiated On: 05/09/2019 7:50 AM Procedure Code(s): --- Professional --- 41843, Colonoscopy, flexible; with removalof tumor(s), polyp(s), or other lesion(s) bysnare technique Diagnosis Code(s): --- Professional --- Z12.11, Encounter for screening formalignant neoplasm of colon D12.0, Benign neoplasm of cecum D12.4, Benign neoplasm of descending colon CPT copyright 2018 [employer]. All rights reserved. The codes documented in this report are preliminary and upon varnish finisher reviewmay be revised to meet current compliance requirements. Scope In: 8:08:41 AM Scope Withdrawal Time 0 hours 15 minutes 0 seconds Scope Out: 8:27:19 AM Ricki Banegas MD PROCEDURE ORD from Last 3 Months or Most Recently Relevant to Health Maintenance Care Teams Shovel Handle Assembler Relationship Specialty Start Date End Date Matthew Lo MD [address] [place] [address] PCP - General Family Practice 11/21/17 Ihsan Arriaza MD [address] [facility] [address] [place] [address] Endocrinology Endocrinology 11/30/22
--- OUTSIDE RECORDS SUMMARY | 2023-10-31 07:17 | XMS_ITS | Referral Summary ---
Author Name Unknown Organization [place] Address [address] [place] [address] Care Team Providers Care Furniture Delivery Driver Name Role Phone Ihsan Arriaza MD Unavailable Jerod Groves MD Unavailable [phone] Skinny Ruvalcaba MD Primary Care Provider [phone] Allergies Active Allergy Reactions Criticality Noted Date [...] Active HYDROcodone-acetamin ophen (NORCO) 5-325 MG tabletIndications:Ey annied retraction, unspecified laterality,Thyroid eye disease Take 1-2 tablets by mouth every 4 hours as needed for moderate to severe pain 10 tablet 01/29/2020 Active Active Problems Problem Noted Date Diagnosed Date Eyelid retraction 09/03/2019 Overview: Added automatically from request for surgery [id number] Thyroid eye disease 12/13/2018 Social History Tobacco [...] on file Medical Devices Implanted Type Area Detective Captain Device Identifier Shelf Expiration Date Model / Serial / Lot Graft Dermal Alloderm 1x4cm Charge Per Sq Cm= 4 Units Implanted:Qty: 1 on 11/20/2019 by Jacobo Ocampo MD at [facility] [place] Bone/Tiss ue/Biolog ic Right: Eye [employer] 07/16/2021 [id number] / / [id number] Care Teams Furniture Delivery Driver Relationship Specialty Start Date End Date Skinny Ruvalcaba MD PCP - General Family Practice 05/15/17 Ihsan Arriaza MD Internal Medicine 02/05/16 Jerod Groves MD Ophthalmology 02/05/16
--- OUTSIDE RECORDS SUMMARY | 2023-10-31 07:17 | XMS_ITS | Encounter Summary ---
Author Name Unknown Organization [place] Address [address] [place] [address] Care Team Providers Care Aquaculture Farm Manager Name Role Phone Ihsan Arriaza MD Unavailable [phone] Jerod Groves MD Unavailable [phone] Skinny Ruvalcaba MD Primary Care Provider + [phone] Jacobo Ocampo MD Unavailable [phone] Encounter Details Date Type Department Care Team (Late st Contact Info) Description 01/28/2020 [facility] Medical Advice [facility] [address] [place] [address] 5th [place] [address] Darlyn Monterroso RN Social History [...] on filedocumented in this encounter Care Teams Aquaculture Farm Manager Relationship Specialty Start Date End Date Skinny Ruvalcaba MD PCP - General Family Practice 05/15/17 Ihsan Arriaza MD Internal Medicine 02/05/16 Jerod Groves MD Ophthalmology 02/05/16 Jacobo Ocampo MD [address] [place] [address] Assigned Surgical Provider 05/08/20 documented as of this encounter
--- OUTSIDE RECORDS SUMMARY | 2023-10-31 07:17 | XMS_ITS | Encounter Summary ---
Author Name Unknown Organization [place] Address [address] [facility] [place] [address] Care Team Providers Care Animal Husbandry Manager Name Role Phone Ihsan Arriaza MD Unavailable [phone] Jerod Groves MD Unavailable [phone] Skinny Ruvalcaba MD Primary Care Provider [phone] Jacobo Ocampo MD Unavailable [phone] Encounter Details Date Type Department Care Team (Late st Contact Info) Description 01/30/[address] [facility] [address] [facility] [address] [place] [address] [address] Jerod Groves MD [address] [place], [place] [address] Social History Tobacco Use Types Packs/Day Years [...] documented as of this encounter Care Teams Animal Husbandry Manager Relationship Specialty Start Date End Date Skinny Ruvalcaba MD PCP - General Family Practice 05/15/17 Ihsan Arriaza MD Internal Medicine 02/05/16 Jerod Groves MD Ophthalmology 02/05/16 Jacobo Ocampo MD [address] [place] [address] Assigned Surgical Provider 05/08/20 documented as of this encounter
--- OUTSIDE RECORDS SUMMARY | 2023-10-31 07:17 | XMS_ITS | Encounter Summary ---
Author Name Unknown Organization [place] Address [address] [place] [address] Care Team Providers Care Towel Sewer Name Role Phone Ihsan Arriaza MD Unavailable [phone] Jerod Groves MD Unavailable [phone] Skinny Ruvalcaba MD Primary Care Provider + [phone] Jacobo Ocampo MD Unavailable [phone] Encounter Details Date Type Department Care Team (Late st Contact Info) Description 05/24/2019 [facility] Eye [address] 9[facility] [address] [place] [address] Candace Cyr Social History Tobacco Use Types [...] documented as of this encounter Care Teams Towel Sewer Relationship Specialty Start Date End Date Skinny Ruvalcaba MD PCP - General Family Practice 05/15/17 Ihsan Arriaza MD Internal Medicine 02/05/16 Jerod Groves MD Ophthalmology 02/05/16 Jacobo Ocampo MD [address] [place] [address] Assigned Surgical Provider 05/08/20 documented as of this encounter
== END 2023-10-23 08:21 | disposition home or self-care (01) ==
LOC: NFLDREF 10-31 07:15
PROVIDERS: PCP Family Medicine; Visit Provider Family Medicine
DX: I10 Essential (primary) hypertension (principal)
CPT/HCPCS: 80048

== ENCOUNTER 2023-12-26 08:20 | Outpatient (CLI) | payer MEDICARE, BC, SELFPAY ==
--- OUTSIDE RECORDS SUMMARY | 2023-12-30 13:27 | XMS_ITS | Clinical Summary ---
Author Organization [employer] [facility] [employer] Address [place], [place] [address] Care Team Providers Care Hand Trimmer Name Role Phone Ihsan Arriaza MD Unavailable [phone] Jacquie Schreiber MD Primary Care Provider + Allergies Active Allergy Reactions Criticality Noted Date Comments Mold Runny Nose 12/26/2017 Pollen Extracts Runny Nose 12/26/2017 Medications Medication Sig Dispensed Refills Start Date End Date Status FLONASE 50 MCG/ACTUATION NASAL SPRAYIndications:All ergic rhinitis, cause unspecified 2 spray in each nostril daily 3 5 05/01/2009 Active cholecalciferol (VITAMIN D3) 2,000 unit capsuleIndications:V itamin D deficiency,B12 deficiency Take 1 Capsule (2,000 units) by mouth once daily. 100 Capsule 3 12/27/2020 Active cyanocobalamin (Vitamin B-12) 1,000 mcg tabletIndications:B1 2 deficiency Take 1 Tablet (1,000 mcg) by mouth once daily. 100 Tablet 3 12/27/2020 Active albuterol HFA (PRO-AIR; VENTOLIN; PROVENTIL) 90 mcg/actuation inhalerIndications:M ild intermittent asthma without complication Inhale 1-2 Puffs by mouth every 4 hours if needed for Shortness Of Breath. 8.5 g 3 04/01/2022 Active fluticasone propion-salmeteroL (Advair Diskus) 100-50 mcg/dose diskus inhalerIndications:M ild intermittent asthma without complication Inhale 1 Puff by mouth two times daily. 3 Each 3 04/01/2022 Active colchicine 0.6 mg tabletIndications:Go ut, unspecified cause, unspecified chronicity, unspecified site Take 1 Tablet (0.6 mg) by mouth 2 times daily if needed for Gout Pain. 90 Tablet 3 06/20/2022 Active lisinopriL (PRINIVIL; ZESTRIL) 5 mg tablet Take 1 Tablet (5 mg) by mouth once daily. 11/24/2023 Active allopurinoL (ZYLOPRIM) 100 mg tablet Take 1 Tablet (100 mg) by mouth once daily. 11/24/2023 Active rosuvastatin (CRESTOR) 10 mg tablet Take 1 Tablet (10 mg) by mouth at bedtime. 11/24/2023 Active Active Problems Problem Noted Date Diagnosed [...] rhinitis, cause unspecified 12/29/2006 Unspecified asthma(493.90) 12/29/2006 Encounters Date Type Department Care Team Description 11/24/2023 8:45 AM CDT Office Visit [facility] [address] [facility] [address] [place] [address] Ihsan Arriaza MD Follow Up (Annual thyroid follow up ) 11/24/2023 Travel from Last 3 Months Immunizations Name Administration Dates Next Due Influenza [...] Sign Reading Time Taken Comments Blood Pressure 134/68 11/24/2023 8:59 AM CDT Pulse 48 11/24/2023 8:59 AM CDT Temperature 36.7 ??C (98 ??F) 01/15/2020 9:07 AM CDT Respiratory Rate 16 11/24/2023 8:59 AM CDT Oxygen Saturation 98% 04/01/2022 8:01 AM CDT Inhaled Oxygen Concentration - - Weight 93.9 kg (207 lb) 11/24/2023 8:59 AM CDT Height 172.5 cm (5' 7.91) 04/01/2022 8:01 AM CD T Body Mass Index 31.55 04/01/2022 8:01 AM CDT Plan of Treatment Upcoming Encounters Date Type Department Care Team (Late st Contact Info) Description 11/27/2024 9:05 AM CDT Office Visit [facility] [address] [place] [address] Ihsan Arriaza MD [address] [place], [place] [address] Health Maintenance Due Date Last Done Comments HIV for age 15-65 1973 Depression screening for age 12+ 03/30/2022 03/30/2021, 05/13/2019, 07/04/2016, Additional history exists COVID-19 vaccine series ( season) 2023 03/26/2022, 12/28/2021, 05/21/2021, Additional history exists BMI (ht and wt on same day) for age 18+ 04/01/2023 04/01/2022, 03/30/2021, 01/15/2020, Additional history exists Medicare Wellness for age 65+ 2023 Influenza for age 65+ 03/17/2024 04/01/2022 , 03/30/2021, 04/27/2020, Additional history exists Colonoscopy through age 75 05/09/202405/09, 05/09/2019, 05/08/2009, Additional history exists Lipids for age 45-75 04/01/2027 04/01/2022, 03/30/2021, 12/16/2019, Additional history exists Tetanus booster 11/22/2028 11/22/2018, 04/13/2004 Tdap Completed 11/22/2018 Hepatitis C screening for ag e 18-79 Completed 12/16/2019 Zoster (shingles) series for age 50+ Completed 12/16/2019, 05/07/2019 Pneumococcal series for age 65+ Completed 2, 03/30/2021 Procedures Procedure Name Priority Date/Time Associated Diagnosis Comments [facility] 99 Routine 11/24/2023 9:35 AM CDT Hyperthyroidism TSH Routine 11/24/2023 9:35 AM CDT Hyperthyroidism T4,FREE Routine 11/24/2023 9:35 AM CDT Hyperthyroidism LIPID PANEL Routine 04/01/2022 8:51 AM CDT Hyperlipidemia, unspecified hyperlipidemia type ANTI HCV Routine 12/16/2019 10:46 AM CDT Need for hepatitis C screening test COLONOSCOPY 05/09/2019 7:50 AM CDT from Last 3 Months or Most Recently Relevant to Health Maintenance Results * (ABNORMAL) THYROID STIM IMMUNOGLOBULIN (11/24/2023 9:35 AM CDT) TSI 1.32(H) 0.00 - 0.55 IU/L 11/29/2023 7:[address] [facility] Blood BLOOD SPECIMEN / Unknown Venipuncture / Unknown 11/24/2023 9:35 AM CDT 11/24/2023 9:37 AM CDT Narrative [facility] - 11/29/2023 7:07 PM CDT Performed at: ??01 [facility] [address] [place] [address] ??[phone] Draw Operator: Jose Cleaning MD, Phone: ??[phone] Ihsan Arriaza MD SEND OUTS [facility] [address] [place] [address], * TSH (11/24/2023 9:35 AM CDT) TSH 0.85 0.27 - 4.20 uIU/mL 11/24/2023 10:42 AM CDT [facility] Blood BLOOD SPECIMEN / Unknown Venipuncture / Unknown 11/24/2023 9:35 AM CDT 11/24/2023 9:37 AM CDT Narrative [facility] - 11/24/2023 10:42 AM CDT In Adults, TSH values between 5.00 and 10.00 uIU/ml do not necessarily indicate the presence of Hypothyroidism. Correlation with clinical findings such as presence of goiter and/or Thyroperoxidase (TPO) Antibody may be helpful. For more information please refer to LINDA 2004; 291: 228-238. Ihsan Arriaza MD CHEMISTRY Performing Organization Address [facility] Co de Phone Number [facility] SENDOUT INTERNAL ZIP [phone] [place] [address] * T4,FREE (11/24/2023 9:35 AM CDT) T4,FREE 1.29 0.93 - 1.70 ng/dL 11/24/2023 10:37 AM CDT [facility] Blood BLOOD SPECIMEN / Unknown Venipuncture / Unknown 11/24/2023 9:35 AM CDT 11/24/2023 9:37 AM CDT Ihsan Arriaza MD CHEMISTRY [facility] SENDOUT INTERNAL ZIP [phone] [place] [address] * (ABNORMAL) LIPID PANEL (04/01/2022 8:51 AM CDT) CHOLESTEROL,TOTAL 161 100 - 199 mg/dL 04/02/2022 10:50 AM CDT [facility] TRIGLYCERIDES 106 <150 mg/dL 04/02/2022 10:50 AM CDT [facility] HDL CHOLESTEROL 40(L) >40 mg/dL 10:50 AM CDT [facility] NON-HDL CHOLESTEROL 121 <145 mg/dl 04/02/2022 10:50 AM CDT [facility] CHOL/HDL RATIO 4.03 <4.50 04/02/2022 10:50 AM CDT [facility] LDL CHOLESTEROL 100 <=130 mg/dL 04/02/2022 10:50 AM CDT [facility] VLDL CHOLESTEROL 21 <=30 mg/dL 04/02/2022 10:50 AM CDT [facility] PROVIDER ORDERED STATUS RANDOM 04/02/2022 10:50 AM CDT [facility] Blood BLOOD SPECIMEN / Unknown Venipuncture / Unknown 04/01/2022 8:51 AM CDT 04/01/2022 8:53 AM CDT Matthew Lo MD CHEMISTRY [facility] [address] [place] [address], [place] * ANTI HCV (12/16/2019 10:46 AM CDT) Pathologist [facility] HEPATITIS C ANTIBODY Non-React charlie Non-React charlie 12/16/2019 5:01 PM CDT [facility] Comment:Antibodies to HCV no t detected; does not exclude the possibility of exposure to HCV. Blood BLOOD SPECIMEN / Unknown Venipuncture / Unknown 12/16/2019 10:46 AM CDT 12/16/2019 10:46 AM CDT Matthew Lo MD SEND OUTS [facility] [address] [place] [id number], [place] * COLONOSCOPY (05/09/2019 7:50 AM CDT) [...] an adequate candidate for conscious sedation. The [id number] was passed through the anus and advanced [...] reponse to care. Please [facility] flowsheets and nursing notes for moderate sedation details. Total physician intraservice time was 21 minutes. Ricki Banegas MD 05/09/2019 8:33:01 AM This report has been signed electronically. Note Initiated On: 05/09/2019 7:50 AM Procedure Code(s): --- Professional --- 43697, Colonoscopy, flexible; with removalof tumor(s), polyp(s), or other lesion(s) bysnare technique Diagnosis Code(s): --- Professional --- Z12.11, Encounter for screening formalignant neoplasm of colon D12.0, Benign neoplasm of cecum D12.4, Benign neoplasm of descending colon CPT copyright 2018 [employer]. All rights reserved. The codes documented in this report are preliminary and upon school plant consultant reviewmay be revised to meet current compliance requirements. Scope In: 8:08:41 AM Scope Withdrawal Time 0 hours 15 minutes 0 seconds Scope Out: 8:27:19 AM Ricki Banegas MD PROCEDURE ORD from Last 3 Months or Most Recently Relevant to Health Maintenance Care Teams Hand Trimmer Relationship Specialty Start Date End Date Jacquie Schreiber MD [address] [place] [address] PCP - General Family Practice 11/24/23 Ihsan Arriaza MD [facility] [address] [place] [address] Endocrinology Endocrinology 11/30/22
--- OUTSIDE RECORDS SUMMARY | 2023-12-30 13:27 | XMS_ITS | Encounter Summary ---
Author Organization [place] Address [address] [place] [address] Care Team Providers Care Jacquard Fixer Name Role Phone Ihsan Arriaza MD Unavailable [phone] Jerod Groves MD Unavailable [phone] Skinny Ruvalcaba MD Primary Care Provider Jacobo Ocampo MD Unavailable [phone] Encounter Details Date Type Department Care Team (Late st Contact Info) Description 05/24/2019 [facility] Eye [address] [address] [place] [address] Candace Cyr Social History Tobacco Use Types [...] documented as of this encounter Care Teams Jacquard Fixer Relationship Specialty Start Date End Date Skinny Ruvalcaba MD PCP - General Family Practice 05/15/17 Ihsan Arriaza MD Internal Medicine 02/05/16 Jerod Groves MD Ophthalmology 02/05/16 Jacobo Ocampo MD [address] [place] [address] Assigned Surgical Provider 05/08/20 documented as of this encounter
--- OUTSIDE RECORDS SUMMARY | 2023-12-30 13:27 | XMS_ITS | Encounter Summary ---
Author Organization [place] Address [address] [place] [address] Care Team Providers Care Trimmer Machine Name Role Phone Ihsan Arriaza MD Unavailable [phone] Jerod Groves MD Unavailable [phone] Skinny Ruvalcaba MD Primary Care Provider + [phone] Jacobo Ocampo MD Unavailable [phone] Encounter Details Date Type Department Care Team (Late st Contact Info) Description 11/15/2019 [facility] Medical Advice [facility] Ophthalmology [address] [facility] [address] [place] [address] Candace Cyr Social History Tobacco Use Types [...] documented as of this encounter Care Teams Trimmer Machine Relationship Specialty Start Date End Date Skinny Ruvalcaba MD PCP - General Family Practice 05/15/17 Ihsan Arriaza MD Internal Medicine 02/05/16 Jerod Groves MD Ophthalmology 02/05/16 Jacobo Ocampo MD [address] [place] [address] Assigned Surgical Provider 05/08/20 documented as of this encounter
--- OUTSIDE RECORDS SUMMARY | 2023-12-30 13:27 | XMS_ITS | Encounter Summary ---
Author Organization [place] Address [address] [place] [address] Care Team Providers Care Can Intake Worker Name Role Phone Ihsan Arriaza MD Unavailable [phone] Jerod Groves MD Unavailable [phone] Skinny Ruvalcaba MD Primary Care Provider + [phone] Jacobo Ocampo MD Unavailable [phone] Encounter Details Date Type Department Care Team (Late st Contact Info) Description 01/21/2020 [facility] [place] Medical Advice [facility] [address] [place] [address] Jacobo Ocampo MD [address] [place] [address] Social History Tobacco Use Types Packs/Day [...] on filedocumented in this encounter Care Teams Can Intake Worker Relationship Specialty Start Date End Date Skinny Ruvalcaba MD PCP - General Family Practice 05/15/17 Ihsan Arriaza MD Internal Medicine 02/05/16 Jerod Groves MD Ophthalmology 02/05/16 Jacobo Ocampo MD [address] [place] [address] Assigned Surgical Provider 05/08/20 documented as of this encounter
--- OUTSIDE RECORDS SUMMARY | 2023-12-30 13:27 | XMS_ITS | Clinical Summary ---
Author Organization [place] Address [address] [place] [address] Care Team Providers Care Family Intervention Specialist Name Role Phone Ihsan Arriaza MD Unavailable [phone] Jerod Groves MD Unavailable [phone] Skinny Ruvalcaba MD Primary Care Provider [phone] Allergies Active Allergy Reactions Criticality Noted Date [...] Overview: Added automatically from request for surgery [id number] Thyroid eye disease 12/13/2018 Family History Medical [...] on file Medical Devices Implanted Type Area Noc Engineer Device Identifier Shelf Expiration Date Model / Serial / Lot Graft Dermal Alloderm 1x4cm Charge Per Sq Cm= 4 Units Implanted:Qty: 1 on 11/20/2019 by Jacobo Ocampo MD at [facility] Surgery [place] Bone/Tiss ue/Biolog ic Right: Eye [employer] 07/16/2021 [id number] / / [id number] Care Teams Family Intervention Specialist Relationship Specialty Start Date End Date Skinny Ruvalcaba MD PCP - General Family Practice 05/15/17 Ihsan Arriaza MD Internal Medicine 02/05/16 Jerod Groves MD Ophthalmology 02/05/16
--- OUTSIDE RECORDS SUMMARY | 2023-12-30 13:27 | XMS_ITS | Encounter Summary ---
Author Organization [place] Address [address] [place] [address] Care Team Providers Care Program Administrator Name Role Phone Ihsan Arriaza MD Unavailable [phone] eJrod Groves MD Unavailable [phone] Skinny Ruvalcaba MD Primary Care Provider + [phone] Jacobo Ocampo MD Unavailable [phone] Encounter Details Date Type Department Care Team (Late st Contact Info) Description 11/18/2019 [facility] [place] [facility] [address] [place] [address] [address] [place] [address] Faby Carter RN Social History [...] on filedocumented in this encounter Care Teams Program Administrator Relationship Specialty Start Date End Date Skinny Ruvalcaba MD PCP - General Family Practice 05/15/17 Ihsan Arriaza MD Internal Medicine 02/05/16 Jerod Groves MD Ophthalmology 02/05/16 Jacobo Ocampo MD [address] [place] [address] Assigned Surgical Provider 05/08/20 documented as of this encounter
--- OUTSIDE RECORDS SUMMARY | 2023-12-30 13:27 | XMS_ITS | Encounter Summary ---
Author Organization [place] Address [address] [facility] [place] [address] Care Team Providers Care Hris Manager Name Role Phone Ihsan Arriaza MD Unavailable [phone] Jerod Groves MD Unavailable [phone] Skinny Ruvalcaba MD Primary Care Provider [phone] Jacobo Ocampo MD Unavailable [phone] Encounter Details Date Type Department Care Team (Late st Contact Info) Description 04/22/[address] [facility] [address] [place] [address] [address] Jerod Groves MD [address] [place], [place] [address] Social History Tobacco Use Types Packs/Day Years [...] documented as of this encounter Care Teams Hris Manager Relationship Specialty Start Date End Date Skinny Ruvalcaba MD PCP - General Family Practice 05/15/17 Ihsan Arriaza MD Internal Medicine 02/05/16 Jerod Groves MD Ophthalmology 02/05/16 Jacobo Ocampo MD [address] [place] [address] Assigned Surgical Provider 05/08/20 documented as of this encounter
--- OUTSIDE RECORDS SUMMARY | 2023-12-30 13:27 | XMS_ITS | Encounter Summary ---
Author Organization [place] Address [address] [place] [address] Care Team Providers Care Fruit And Vegetable Factory Worker Name Role Phone Ihsan Arriaza MD Unavailable [phone] Jerod Groves MD Unavailable [phone] Skinny Ruvalcaba MD Primary Care Provider + [phone] Jacobo Ocampo MD Unavailable [phone] Reason for Visit * Reason Onset Date Comments Appointment 03/02/2018 Pt new or return ? Encounter Details Date Type Department Care Team ([facility] st Contact Info) Description 03/02/2018 [facility] Ophthalmology [address] [place] [address] Jacobo Ocampo MD [address] [place] [address] Appointment (Pt new or return?) Social History Tobacco Use Types Packs/Day Years Used Date Smoking Tobacco: Never Smokeless Tobacco: Never Sex and Gender Information Value Date Recorded Sex Assigned at Not on file Gender Identity Not on file Sexual Orientation Not on file documented as of this encounter Miscellaneous Notes * Telephone Encounter - Tyson Riley - 03/02/2018 11:[address] [facility] Call Center Phone Message May a [...] documented as of this encounter Care Teams Fruit And Vegetable Factory Worker Relationship Specialty Start Date End Date Skinny Ruvalcaba MD PCP - General Family Practice 05/15/17 Ihsan Arriaza MD Internal Medicine 02/05/16 Jerod Groves MD Ophthalmology 02/05/16 Jacobo Ocampo MD [address] [place] [address] Assigned Surgical Provider 05/08/20 documented as of this encounter
--- OUTSIDE RECORDS SUMMARY | 2023-12-30 13:27 | XMS_ITS | Encounter Summary ---
Author Organization [place] Address [address] [facility] [place] [address] Care Team Providers Care Stencil Printer Name Role Phone Ihsan Arriaza MD Unavailable [phone] Jerod Groves MD Unavailable [phone] Skinny Ruvalcaba MD Primary Care Provider [phone] Jacobo Ocampo MD Unavailable [phone] Encounter Details Date Type Department Care Team (Late st Contact Info) Description 01/30/2018 [facility] Medical Advice [facility] [address] [place] [address] [address] Jerod Groves MD [address] [place], [place] [address] Social History Tobacco Use Types Packs/Day Years [...] documented as of this encounter Care Teams Stencil Printer Relationship Specialty Start Date End Date Skinny Ruvalcaba MD PCP - General Family Practice 05/15/17 Ihsan Arriaza MD Internal Medicine 02/05/16 Jerod Groves MD Ophthalmology 02/05/16 Jacobo Ocampo MD [address] [place] [address] Assigned Surgical Provider 05/08/20 documented as of this encounter
--- OUTSIDE RECORDS SUMMARY | 2023-12-30 13:27 | XMS_ITS | Encounter Summary ---
Author Organization [place] Address [address] [place] [address] Care Team Providers Care Forklift Material Handler Name Role Phone Ihsan Arriaza MD Unavailable [phone] Jerod Groves MD Unavailable [phone] Skinny Ruvalcaba MD Primary Care Provider + [phone] Jacobo Ocampo MD Unavailable [phone] Encounter Details Date Type Department Care Team (Late st Contact Info) Description 11/14/2018 [facility] Medical Adv[facility] Ambulatory [address] [place] [address] Марина Falk [facility] Social History Tobacco Use Types [...] documented as of this encounter Care Teams Forklift Material Handler Relationship Specialty Start Date End Date Skinny Ruvalcaba MD PCP - General Family Practice 05/15/17 Ihsan Arriaza MD Internal Medicine 02/05/16 Jerod Groves MD Ophthalmology 02/05/16 Jacobo Ocampo MD [address] [place] [address] Assigned Surgical Provider 05/08/20 documented as of this encounter
--- OUTSIDE RECORDS SUMMARY | 2023-12-30 13:27 | XMS_ITS | Encounter Summary ---
Author Organization [facility] Address [address] [place] [address] Care Team Providers Care Chronometer Assembler Name Role Phone Ihsan Arriaza MD Unavailable [phone] Jerod Groves MD Unavailable [phone] Skinny Ruvalcaba MD Primary Care Provider + [phone] Jacobo Ocampo MD Unavailable [phone] Encounter Details Date Type Department Care Team (Late st Contact Info) Description 11/18/2019 [facility] [place] [facility] [address] [place] [address] 5th [place] [address] Faby Carter RN Social [...] on filedocumented in this encounter Care Teams Chronometer Assembler Relationship Specialty Start Date End Date Skinny Ruvalcaba MD PCP - General Family Practice 05/15/17 Ihsan Arriaza MD Internal Medicine 02/05/16 Jerod Groves MD Ophthalmology 02/05/16 Jacobo Ocampo MD [address] [place] [address] Assigned Surgical Provider 05/08/20 documented as of this encounter
--- OUTSIDE RECORDS SUMMARY | 2023-12-30 13:27 | XMS_ITS | Encounter Summary ---
Author Organization [place] Address [address] [place] [address] Care Team Providers Care Retail Account Representative Name Role Phone Ihsan Arriaza MD Unavailable [phone] Jerod Groves MD Unavailable [phone] Skinny Ruvalcaba MD Primary Care Provider + [phone] Jacobo Ocampo MD Unavailable [phone] Encounter Details Date Type Department Care Team (Late st Contact Info) Description 04/21/2020 [facility] Medical Advice [facility] Ophthalmology [address] [place] [address] Jacobo Ocampo MD [address] [place] [address] Social History Tobacco Use Types Packs/Day [...] If he doesn't answer it's ok to [facility] with appointment info. Thanks! Sheree Brice RN RN 11:03 AM 04/23/20 documented in this encounter Plan of Treatment Not on file documented as of this encounter Visit Diagnoses Not on filedocumented in this encounter Care Teams Retail Account Representative Relationship Specialty Start Date End Date Skinny Ruvalcaba MD PCP - General Family Practice 05/15/17 Ihsan Arriaza MD Internal Medicine 02/05/16 Jerod Groves MD Ophthalmology 02/05/16 Jacobo Ocampo MD [address] [place] [address] Assigned Surgical Provider 05/08/20 documented as of this encounter
--- OUTSIDE RECORDS SUMMARY | 2023-12-30 13:27 | XMS_ITS | Encounter Summary ---
Author Organization [place] Address [address] [place] [address] Care Team Providers Care Scientific Director Name Role Phone Ihsan Arriaza MD Unavailable [phone] Jerod Groves MD Unavailable [phone] Skinny Ruvalcaba MD Primary Care Provider + [phone] Jacobo Ocampo MD Unavailable [phone] Encounter Details Date Type Department Care Team (Late st Contact Info) Description 01/28/2020 [facility] [place] Medical Advice [facility] [address] [place] [address] 5th [place] [address] Darlyn Monterroso RN Social History [...] on filedocumented in this encounter Care Teams Scientific Director Relationship Specialty Start Date End Date Skinny Ruvalcaba MD PCP - General Family Practice 05/15/17 Ihsan Arriaza MD Internal Medicine 02/05/16 Jerod Groves MD Ophthalmology 02/05/16 Jacobo Ocampo MD [address] [place] [address] Assigned Surgical Provider 05/08/20 documented as of this encounter
--- OUTSIDE RECORDS SUMMARY | 2023-12-30 13:27 | XMS_ITS | Encounter Summary ---
Author Organization [facility] Address [address] [place] [address] Care Team Providers Care Line Director Name Role Phone Ihsan Arriaza MD Unavailable [phone] Jerod Groves MD Unavailable [phone] Skinny Ruvalcaba MD Primary Care Provider + [phone] Jacobo Ocampo MD Unavailable [phone] Reason for Visit * Reason Onset Date Comments Call Back 11/20/2019 Question on surg ical aftercare Encounter Details Date Type Department Care Team (Late st Contact Info) Description 11/20/2019 Telephone [facility] Ophthalmology [address] [place] [address] Jacobo Ocampo MD [address] [place] [address] Call Back (Question on surgical aftercare) [...] Shereen Tolentino - 11/20/2019 12:40 PM CDT [facility] Call Center Phone Message May a [...] Message routed to: [facility] ([facility]): Eye Travel Screening: Not Applicable documented in this encounter Plan of Treatment Not on file documented as of this encounter Visit Diagnoses Not on filedocumented in this encounter Care Teams Line Director Relationship Specialty Start Date End Date Skinny Ruvalcaba MD PCP - General Family Practice 05/15/17 Ihsan Arriaza MD Internal Medicine 02/05/16 Jerod Groves MD Ophthalmology 02/05/16 Jacobo Ocampo MD [address] [place] [address] Assigned Surgical Provider 05/08/20 documented as of this encounter
--- OUTSIDE RECORDS SUMMARY | 2023-12-30 13:27 | XMS_ITS | Referral Summary ---
Author Organization [place] Address [address] [place] [address] Care Team Providers Care Paint Grinder Name Role Phone Ihsan Arriaza MD Unavailable [phone] Jerod Groves MD Unavailable [phone] Skinny Ruvalcaba MD Primary Care Provider [phone] Allergies Active Allergy Reactions Criticality Noted Date [...] Overview: Added automatically from request for surgery [id number] Thyroid eye disease 12/13/2018 Social History Tobacco [...] on file Medical Devices Implanted Type Area Front End Manager Device Identifier Shelf Expiration Date Model / Serial / Lot Graft Dermal Alloderm 1x4cm Charge Per Sq Cm= 4 Units Implanted:Qty: 1 on 11/20/2019 by Jacobo Ocampo MD at [facility] Bone/Tiss ue/Biolog ic Right: Eye [employer] 07/16/2021 [id number] / / [id number] Care Teams Paint Grinder Relationship Specialty Start Date End Date Skinny Ruvalcaba MD PCP - General Family Practice 05/15/17 Ihsan Arriaza MD Internal Medicine 02/05/16 Jerod Groves MD Ophthalmology 02/05/16
== END 2023-12-26 08:21 | disposition home or self-care (01) ==
LOC: NFLDREF 12-30 13:25
PROVIDERS: PCP Family Medicine; Referring Provider Family Medicine; Visit Provider Family Medicine
DX: I10 Essential (primary) hypertension (principal)
CPT/HCPCS: 80053

== ENCOUNTER 2024-05-16 06:34 | Outpatient (CLI) | payer MEDICARE, BC, SELFPAY ==
--- OUTSIDE RECORDS SUMMARY | 2024-05-16 06:36 | XMS_ITS | Encounter Summary ---
Author Organization [place] Address [address] [place] [address] Care Team Providers Care Certified Control Systems Technician Name Role Phone Ihsan Arriaza MD Unavailable [phone] Jerod Groves MD Unavailable [phone] Skinny Ruvalcaba MD Primary Care Provider + [phone] Jacobo Ocampo MD Unavailable [phone] Encounter Details Date Type Department Care Team (Late st Contact Info) Description 01/21/2020 [facility] [place] Medical Advice [facility] [address] [place] [address] Jacobo Ocampo MD [address] [place] [address] Social History Tobacco Use Types Packs/Day Years Used Date Smoking Tobacco: Never Smokeless Tobacco: Never Alcohol Use Standard Drinks/Week Comments Yes 0 (1 standard drink = 0.6 oz pur e alcohol) rarely PHQ-2 Answer Date Recorded PHQ-2 Score 0 09/02/2019 Sex and Gender Information Value Date Recorded Sex Assigned at Not on file Legal Sex Male 3:59 AM NEWSPAPER PHOTOGRAPHER Gender Identity Not on file Sexual Orientation [...] on filedocumented in this encounter Care Teams Certified Control Systems Technician Relationship Specialty Start Date End Date Skinny Ruvalcaba MD PCP - General Family Practice 05/15/17 Ihsan Arriaza MD Internal Medicine 02/05/16 Jerod Groves MD Ophthalmology 02/05/16 Jacobo Ocampo MD [address] [place] [address] Assigned Surgical Provider 05/08/20 documented as of this encounter
--- OUTSIDE RECORDS SUMMARY | 2024-05-16 06:36 | XMS_ITS | Encounter Summary ---
Author Organization [facility] Address [address] [place] [address] Care Team Providers Care Printing Plate Setter Name Role Phone Ihsan Arriaza MD Unavailable [phone] Jerod Groves MD Unavailable [phone] Skinny Ruvalcaba MD Primary Care Provider + [phone] Jacobo Ocampo MD Unavailable [phone] Encounter Details Date Type Department Care Team (Late st Contact Info) Description 05/24/2019 [facility] Eye [address] [place] [address] Candace Cyr Social History Tobacco Use Types Packs/Day Years Used Date Smoking Tobacco: Never Smokeless Tobacco: Never Alcohol Use Standard Drinks/Week Comments Yes 0 (1 standard drink = 0.6 oz pur e alcohol) rarely PHQ-2 Answer Date Recorded PHQ-2 Score 0 03/04/2019 Sex and Gender Information Value Date Recorded Sex Assigned at Not on file Legal Sex Male 3:59 AM NUCLEAR SCIENTIST Gender Identity Not on file Sexual Orientation Not on file documented as of this encounter Plan of Treatment Not on file documented as of this encounter Visit Diagnoses Not on filedocumented in this encounter Additional Health Concerns Infection Onset Date Last Indicated Resolved Time Rule Out COVID-19 11/16/2019 11/16/2019 11/17/2019 9:33 PM CDT documented as of this encounter Care Teams Printing Plate Setter Relationship Specialty Start Date End Date Skinny Ruvalcaba MD PCP - General Family Practice 05/15/17 Ihsan Arriaza MD Internal Medicine 02/05/16 Jerod Groves MD Ophthalmology 02/05/16 Jacobo Ocampo MD [address] [place] [address] Assigned Surgical Provider 05/08/20 documented as of this encounter
--- OUTSIDE RECORDS SUMMARY | 2024-05-16 06:36 | XMS_ITS | Referral Summary ---
Author Organization [place] Address [address] [place] [address] Care Team Providers Care Tongue And Groove Machine Setter Name Role Phone Ihsan Arriaza MD Unavailable [phone] Jerod Groves MD Unavailable [phone] Skinny Ruvalcaba MD Primary Care Provider [phone] Allergies Active Allergy Reactions Criticality Noted Date Comments Mold Other (See Comments) 12/26/2017 Pollen Extract Other (See Comments) 12/26/2017 Medications Fluticasone Propionate (FLONASE NA) Active METHIMAZOLE PO Take 0.5 half-tab by mouth Active albuterol (PROAIR HFA/PROVENTIL HFA/VENTOLIN HFA) 108 (90 BASE) MCG/ACT Inhaler Inhale 2 puffs into the lungs 6 Active fluticasone-salm eterol (ADVAIR DISKUS) 100-50 MCG/DOSE diskus inhaler Inhale 1 puff into the lungs 6 Active atorvastatin (LIPITOR) 20 MG tablet Take 20 mg by mouth 8 Active allopurinol (ZYLOPRIM) 300 MG tablet Take 300 mg by mouth 8 Active prednisoLONE acetate (PRED FORTE) 1 % ophthalmic suspensionIndica tions:Postoperat charlie eye state Instill 1 drop into operative eye(s) four times a day. Do NOT start drops until instructed by Surgeon. 10 mL 9 Active oxyCODONE (ROXICODONE) 5 MG tabletIndication s:Eyelid retraction, unspecified laterality Take 1-2 tablets (5-10 mg) by mouth every 4 hours as needed for moderate to severe pain 6 tablet 0 Active HYDROcodone-acet aminophen (NORCO) 5-325 MG tabletIndication s:Eyelid retraction, unspecified laterality,Thyro id eye disease Take 1-2 tablets by mouth every 4 hours as needed for moderate to severe pain 10 tablet 0 Active Active Problems Problem Noted Date Diagnosed Date Eyelid retraction 09/03/2019 Overview (09/03/2019): Added automatically from request for surgery [id number] Thyroid eye disease 12/13/2018 Social History Tobacco [...] on file Legal Sex Male 3:59 AM SPORTING GOODS SALES MANAGER Gender Identity Not on file Sexual Orientation [...] on file Medical Devices Implanted Type Area Skidder Driver Device Identifier Shelf Expiration Date Model / Serial / Lot Graft Dermal Alloderm 1x4cm Charge Per Sq Cm= 4 Units Implanted:Qty: 1 on 11/20/2019 by Jacobo Ocampo MD at [facility] Bone/Tiss ue/Biolog ic Right: Eye [employer] 07/16/2021 [id number] / / [id number] Insurance BLUE PLUS BLUE PLUS Care Teams Tongue And Groove Machine Setter Relationship Specialty Start Date End Date Skinny Ruvalcaba MD PCP - General Family Practice 05/15/17 Ihsan Arriaza MD Internal Medicine 02/05/16 Jerod Groves MD Ophthalmology 02/05/16
--- OUTSIDE RECORDS SUMMARY | 2024-05-16 06:36 | XMS_ITS | Clinical Summary ---
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 Uric acid level 8.2. Hyperlipidemia 07/04/2016 Hyperthyroidism 09/29/2015 Overview (07/02/2021): 11/2015 thyroid scan 71% homogeneous uptake c/w graves' 11/2015 start methimazole 12/2019- d/c methimazole Screen for colon cancer 05/08/2009 Overview (05/08/2009): Colonoscopy 04/2009 normal repeat in 10 years Allergic rhinitis, cause unspecified 12/29/2006 Unspecified asthma(493.90) 12/29/2006 Encounters Date Type Department Care Team Description 03/13/2024 Orders Only [facility] [address] [place] [address] Ricki Banegas MD <No scans attached> from Last 3 Months Immunizations Name Administration Dates Next Due Influenza A (H1N1), Inactivated 08/03/2009 Influenza, IIV3 (Age >=3 years) 05/01/2009,06/03 Influenza, IIV4 04/01/2022, 1,04/26/2019,2016,05/04/2016 Influenza,CCIIV4 PRESERV FREE 04/27/2020 Pneumococcal Conj 20-valent [...] Description 11/27/2024 9:05 AM CDT Office Visit [facility] [address] [facility] [address] [place] [address] Ihsan Arriaza MD [address] [place] [address] Health Maintenance Due Date Last Done Comments Depression screening for age 12+ 03/30/2022 03/30/2021, 05/13/2019, 07/04/2016, Additional history exists BMI (ht and wt on same day) for age 18+ 04/01/2023 04/01/2022, 03/30/2021, 01/15/2020, Additional history exists Medicare Wellness for age 65+ 2023 COVID-19 vaccine series ( season) 2024 03/26/2022, 12/28/2021, 05/21/2021, Additional history exists Influenza for age 65+ [...] - 199 mg/dL 04/02/2022 10:50 AM CDT [facility] TRIGLYCERIDES 106 <150 mg/dL 04/02/2022 10:50 AM CDT [facility] HDL CHOLESTEROL 40(L) >40 mg/dL 10:50 AM CDT [facility] NON-HDL CHOLESTEROL 121 <145 mg/dl 04/02/2022 10:50 AM CDT [facility] CHOL/HDL RATIO 4.03 <4.50 04/02/2022 10:50 AM CDT [facility] LDL CHOLESTEROL 100 <=130 mg/dL 04/02/2022 10:50 AM CDT [facility] VLDL CHOLESTEROL 21 <=30 mg/dL 04/02/2022 10:50 AM CDT [facility] PROVIDER ORDERED STATUS RANDOM 04/02/2022 10:50 AM CDT [facility] Blood BLOOD SPECIMEN / Unknown Venipuncture / Unknown 04/01/2022 8:51 AM CDT 04/01/2022 8:53 AM CDT Matthew Lo MD CHEMISTRY Performing Organization Address [place] Co de Phone Number [facility] [address] [place] [address], [place] * ANTI HCV (12/16/2019 10:46 AM CDT) HEPATITIS C ANTIBODY Non-React charlie Non-React charlie 12/16/2019 5:01 PM CDT [facility] Comment:Antibodies to HCV no t detected; does not exclude the possibility of exposure to HCV. Blood BLOOD SPECIMEN / Unknown Venipuncture / Unknown 12/16/2019 10:46 AM CDT 12/16/2019 10:46 AM CDT Matthew Lo MD SEND OUTS Performing Organization Address [place] Co de Phone Number [facility] [address] [place] [address], [place] * COLONOSCOPY (05/09/2019 7:50 AM CDT) 05/09/2019 7:50 AM CDT Narrative Transcriptions Ricki Banegas MD - 05/09/2019 8:33 AM CDT Patient Name: Errol Morris Procedure Date: 05/09/2019 Gender: Male Date of [...] adequate candidate for conscious sedation. The [id number] was passed through the anus and advanced [...] reponse to care. [facility] and nursing notes for moderate sedation details. Total physician intraservice time was 21 minutes. Ricki Banegas MD 05/09/2019 8:33:01 AM This report has been signed electronically. Note Initiated On: 05/09/2019 7:50 AM Procedure Code(s): --- Professional --- 16771, Colonoscopy, flexible; with removalof tumor(s), polyp(s), or other lesion(s) bysnare technique Diagnosis Code(s): --- Professional --- Z12.11, Encounter for screening formalignant neoplasm of colon D12.0, Benign neoplasm of cecum D12.4, Benign neoplasm of descending colon CPT copyright 2018 [employer]. All rights reserved. The codes documented in this report are preliminary and upon kiln puller reviewmay be revised to meet current compliance requirements. Scope In: 8:08:41 AM Scope Withdrawal Time 0 hours 15 minutes 0 seconds Scope Out: 8:27:19 AM Ricki Banegas MD PROCEDURE ORD from Last 3 Months or Most Recently Relevant to Health Maintenance Care Teams Cleaner Housekeeping Relationship Specialty Start Date End Date Jacquie Schreiber MD [address] [place] [address] PCP - General Family Practice 11/24/23 Ihsan Arriaza MD [address] [facility] [address] [place] [address] Endocrinology Endocrinology 11/30/22
--- OUTSIDE RECORDS SUMMARY | 2024-05-16 06:36 | XMS_ITS | Encounter Summary ---
Author Organization [place] Address [address] [place] [address] Care Team Providers Care Pourer Name Role Phone Ihsan Arriaza MD Unavailable [phone] Jerod Groves MD Unavailable [phone] Skinny Ruvalcaba MD Primary Care Provider + [phone] Jacobo Ocampo MD Unavailable [phone] Encounter Details Date Type Department Care Team (Late st Contact Info) Description 11/18/2019 [facility] Medical Advice [facility] [address] [place] [address] [address] [place] [address] Faby Carter RN Social History Tobacco Use Types Packs/Day Years Used Date Smoking Tobacco: Never Smokeless Tobacco: Never Alcohol Use Standard Drinks/Week Comments Yes 0 (1 standard drink = 0.6 oz pur e alcohol) rarely PHQ-2 Answer Date Recorded PHQ-2 Score 0 09/02/2019 Sex and Gender Information Value Date Recorded Sex Assigned at Not on file 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
--- OUTSIDE RECORDS SUMMARY | 2024-05-16 06:36 | XMS_ITS | Encounter Summary ---
Author Organization [place] Address [address] [place] [address] Care Team Providers Care Pulling Machine Operator Name Role Phone Ihsan Arriaza MD Unavailable [phone] Jerod Groves MD Unavailable [phone] Skinny Ruvalcaba MD Primary Care Provider [phone] Jacobo Ocampo MD Unavailable [phone] Encounter Details Date Type Department Care Team (Late st Contact Info) Description 11/15/2019 [facility] Medical Advice Health Ophthalmology [address] [facility] [address] [place] [address] Candace Cyr Social History Tobacco Use Types Packs/Day Years Used Date Smoking Tobacco: Never Smokeless Tobacco: Never Alcohol Use Standard Drinks/Week Comments Yes 0 (1 standard drink = 0.6 oz pur e alcohol) rarely PHQ-2 Answer Date Recorded PHQ-2 Score 0 09/02/2019 Sex and Gender Information Value Date Recorded Sex Assigned at Not on file 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
--- OUTSIDE RECORDS SUMMARY | 2024-05-16 06:36 | XMS_ITS | Encounter Summary ---
Author Organization [place] Address [address] [place] [address] Care Team Providers Care River Boat Captain Name Role Phone Ihsan Arriaza MD Unavailable [phone] Jerod Groves MD Unavailable [phone] Skinny Ruvalcaba MD Primary Care Provider [phone] Jacobo Ocampo MD Unavailable [phone] Encounter Details Date Type Department Care Team (Late st Contact Info) Description 11/14/2018 [facility], Ambulatory [address] [place] [address] Марина Falk [facility] Social History Tobacco Use Types Packs/Day Years Used Date Smoking Tobacco: Never Smokeless Tobacco: Never Sex and Gender Information Value Date Recorded Sex Assigned at Not on file 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 Gender Identity Not on file Sexual Orientation Not on file documented as of this encounter Plan of Treatment Not on file documented as of this encounter Visit Diagnoses Not on filedocumented in this encounter Additional Health Concerns Infection Onset Date Last Indicated Resolved Time Rule Out COVID-19 11/16/2019 11/16/2019 11/17/2019 9:33 PM CDT documented as of this encounter Care Teams River Boat Captain Relationship Specialty Start Date End Date Skinny Ruvalcaba MD PCP - General Family Practice 05/15/17 Ihsan Arriaza MD Internal Medicine 02/05/16 Jerod Groves MD Ophthalmology 02/05/16 Jacobo Ocampo MD 9 [place] [address] Assigned Surgical Provider 05/08/20 documented as of this encounter
--- OUTSIDE RECORDS SUMMARY | 2024-05-16 06:36 | XMS_ITS | Encounter Summary ---
Author Organization [place] Address [address] [place] [address] Care Team Providers Care Solar Sales Assessor Name Role Phone Ihsan Arriaza MD Unavailable [phone] Jerod Groves MD Unavailable [phone] Skinny Ruvalcaba MD Primary Care Provider + [phone] Jacobo Ocampo MD Unavailable [phone] Encounter Details Date Type Department Care Team (Late st Contact Info) Description 04/21/2020 [facility] Medical Advice [facility] Ophthalmology [address] [place] [address] Jacobo cOampo MD [address] [place] [address] Social History Tobacco Use Types Packs/Day Years Used Date Smoking Tobacco: Never Smokeless Tobacco: Never Alcohol Use Standard Drinks/Week Comments Yes 0 (1 standard drink = 0.6 oz pur e alcohol) rarely PHQ-2 Answer Date Recorded PHQ-2 Score 0 09/02/2019 Sex and Gender Information Value Date Recorded Sex Assigned at Not on file 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 Ocampo schedule? Post op follow up. If he doesn't answer it's ok to LVM with appointment info. Thanks! Sheree Brice, RN RN 11:03 AM 04/23/20 documented in this encounter Plan of Treatment Not on file documented as of this encounter Visit Diagnoses Not on filedocumented in this encounter Care Teams Solar Sales Assessor Relationship Specialty Start Date End Date Skinny Ruvalcaba MD PCP - General Family Practice 05/15/17 Ihsan Arriaza MD Internal Medicine 02/05/16 Jerod Groves MD Ophthalmology 02/05/16 Jacobo Ocampo MD 9 [place] [address] Assigned Surgical Provider 05/08/20 documented as of this encounter
--- OUTSIDE RECORDS SUMMARY | 2024-05-16 06:36 | XMS_ITS | Encounter Summary ---
Author Organization [place] Address [address] [facility] [place] [address] Care Team Providers Care Advertising Executive Name Role Phone Ihsan Arriaza MD Unavailable [phone] Jerod Groves MD Unavailable [phone] Skinny Ruvalcaba MD Primary Care Provider [phone] Jacobo Ocampo MD Unavailable [phone] Encounter Details Date Type Department Care Team (Late st Contact Info) Description 04/22/2017 [facility] Medical Advice [facility] [address] [place] [address] [address] Jerod Groves MD [address] [facility] [address] [place], [place] [address] Social History Tobacco Use Types Packs/Day Years Used Date Smoking Tobacco: Never Sex and Gender Information Value Date Recorded Sex Assigned at Not on file 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 Gender Identity Not on file Sexual Orientation Not on file documented as of this encounter Plan of Treatment Not on file documented as of this encounter Visit Diagnoses Not on filedocumented in this encounter Additional Health Concerns Infection Onset Date Last Indicated Resolved Time Rule Out COVID-19 11/16/2019 11/16/2019 11/17/2019 9:33 PM CDT documented as of this encounter Care Teams Advertising Executive Relationship Specialty Start Date End Date Skinny Ruvalcaba MD PCP - General Family Practice 05/15/17 Ihsan Arriaza MD Internal Medicine 02/05/16 Jerod Groves MD Ophthalmology 02/05/16 Jacobo Ocampo MD 9 [place] [address] Assigned Surgical Provider 05/08/20 documented as of this encounter
--- OUTSIDE RECORDS SUMMARY | 2024-05-16 06:36 | XMS_ITS | Encounter Summary ---
Author Organization [place] Address [address] [place] [address] Care Team Providers Care Research Animal Facility Supervisor Name Role Phone Ihsan Arriaza MD Unavailable [phone] Jerod Groves MD Unavailable [phone] Skinny Ruvalcaba MD Primary Care Provider + [phone] Jacobo Ocampo MD Unavailable [phone] Encounter Details Date Type Department Care Team (Late st Contact Info) Description 11/18/2019 [facility] [place] [facility] [address] [place] [address] [address] [place] [address] Faby Carter RN Social History Tobacco Use Types Packs/Day Years Used Date Smoking Tobacco: Never Smokeless Tobacco: Never Alcohol Use Standard Drinks/Week Comments Yes 0 (1 standard drink = 0.6 oz pur e alcohol) rarely PHQ-2 Answer Date Recorded PHQ-2 Score 0 09/02/2019 Sex and Gender Information Value Date Recorded Sex Assigned at Not on file 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
--- OUTSIDE RECORDS SUMMARY | 2024-05-16 06:36 | XMS_ITS | Encounter Summary ---
Author Organization [place] Address [address] [facility] [place] [address] Care Team Providers Care Service Counselor Name Role Phone Ihsan Arriaza MD Unavailable [phone] Jerod Groves MD Unavailable [phone] Skinny Ruvalcaba MD Primary Care Provider [phone] Jacobo Ocampo MD Unavailable [phone] Encounter Details Date Type Department Care Team (Late st Contact Info) Description 01/30/2018 [facility] Medical Advice [facility] [address] [place] [address] [address] Jerod Groves MD [address] [facility] [address] [place], [place] [address] Social History Tobacco Use Types Packs/Day Years Used Date Smoking Tobacco: Never Smokeless Tobacco: Never Sex and Gender Information Value Date Recorded Sex Assigned at Not on file 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 Gender Identity Not on file Sexual Orientation Not on file documented as of this encounter Plan of Treatment Not on file documented as of this encounter Visit Diagnoses Not on filedocumented in this encounter Additional Health Concerns Infection Onset Date Last Indicated Resolved Time Rule Out COVID-19 11/16/2019 11/16/2019 11/17/2019 9:33 PM CDT documented as of this encounter Care Teams Service Counselor Relationship Specialty Start Date End Date Skinny Ruvalcaba MD PCP - General Family Practice 05/15/17 Ihsan Arriaza MD Internal Medicine 02/05/16 Jerod Groves MD Ophthalmology 02/05/16 Jacobo Ocampo MD [address] [place] [address] Assigned Surgical Provider 05/08/20 documented as of this encounter
--- OUTSIDE RECORDS SUMMARY | 2024-05-16 06:36 | XMS_ITS | Encounter Summary ---
Author Organization [place] Address [address] [place] [address] Care Team Providers Care Audio Visual Engineer Name Role Phone Ihsan Arriaza MD Unavailable [phone] Jerod Groves MD Unavailable [phone] Skinny Ruvalcaba MD Primary Care Provider + [phone] Jacobo Ocampo MD Unavailable [phone] Encounter Details Date Type Department Care Team (Late st Contact Info) Description 01/28/2020 [facility] Medical Advice [facility] [address] [place] [address] 5th [place] [address] Darlyn Monterroso RN Social History Tobacco Use Types Packs/Day Years Used Date Smoking Tobacco: Never Smokeless Tobacco: Never Alcohol Use Standard Drinks/Week Comments Yes 0 (1 standard drink = 0.6 oz pur e alcohol) rarely PHQ-2 Answer Date Recorded PHQ-2 Score 0 09/02/2019 Sex and Gender Information Value Date Recorded Sex Assigned at Not on file 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
--- OUTSIDE RECORDS SUMMARY | 2024-05-16 06:36 | XMS_ITS | Encounter Summary ---
Author Organization [place] Address [address] [place] [address] Care Team Providers Care Boat Painter Name Role Phone Ihsan Arriaza MD Unavailable [phone] Jerod Groves MD Unavailable [phone] Skinny Ruvalcaba MD Primary Care Provider + [phone] Jacobo Ocampo MD Unavailable [phone] Reason for Visit * Reason Onset Date Comments Appointment 03/02/2018 Pt new or return ? 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 Gender Identity Not on file Sexual Orientation Not on file documented as of this encounter Miscellaneous Notes * Telephone Encounter - Tyson Riley - 03/02/2018 11:47 AM CDT Health Call Center Phone Message May a detailed [...] Message routed to: [facility] ([facility]): Ophthamology documented in this encounter Plan of Treatment Not on file documented as of this encounter Visit Diagnoses Not on filedocumented in this encounter Additional Health Concerns Infection Onset Date Last Indicated Resolved Time Rule Out COVID-19 11/16/2019 11/16/2019 11/17/2019 9:33 PM CDT documented as of this encounter Care Teams Boat Painter Relationship Specialty Start Date End Date Skinny Ruvalcaba MD PCP - General Family Practice 05/15/17 Ihsan Arriaza MD Internal Medicine 02/05/16 Jerod Groves MD Ophthalmology 02/05/16 Jacobo Ocampo MD [address] [place] [address] Assigned Surgical Provider 05/08/20 documented as of this encounter
--- OUTSIDE RECORDS SUMMARY | 2024-05-16 06:36 | XMS_ITS | Encounter Summary ---
Author Organization [place] Address [address] [place] [address] Care Team Providers Care Registered Nurse Practitioner Name Role Phone Ihsan Arriaza MD Unavailable [phone] Jerod Groves MD Unavailable [phone] Skinny Ruvalcaba MD Primary Care Provider [phone] Jacobo Ocampo MD Unavailable [phone] Reason for Visit * Reason Onset Date Comments Call Back 11/20/2019 Question on surg ical aftercare Encounter Details Date Type Department Care Team (Late st Contact Info) Description 11/20/2019 Telephone [facility] Ophthalmology [address] [place] [address] Jacobo Ocampo MD [address] [place] [address] Call Back (Question on surgical aftercare) [...] on file 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 Gender Identity Not on file Sexual Orientation [...] Shereen Tolentino - 11/20/2019 12:40 PM CDT [facility] Call Center Phone Message May a detailed [...] Message routed to: Clinics [facility] ([facility]): Eye Travel Screening: Not Applicable documented in this encounter Plan of Treatment Not on file documented as of this encounter Visit Diagnoses Not on filedocumented in this encounter Care Teams Registered Nurse Practitioner Relationship Specialty Start Date End Date Skinny Ruvalcaba MD PCP - General Family Practice 05/15/17 Ihsan Arriaza MD Internal Medicine 02/05/16 Jerod Groves MD Ophthalmology 02/05/16 Jacobo Ocapmo MD [address] [place] [address] Assigned Surgical Provider 05/08/20 documented as of this encounter
--- OUTSIDE RECORDS SUMMARY | 2024-05-16 06:36 | XMS_ITS | Clinical Summary ---
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 MANAGER SOCIAL Gender Identity Not on file Sexual Orientation [...] on file Medical Devices Implanted Type Area Director Hydrogen Storage Engineering Device Identifier Shelf Expiration Date Model / Serial / Lot Graft Dermal Alloderm 1x4cm Charge Per Sq Cm= 4 Units Implanted:Qty: 1 on 11/20/2019 by Jacobo Ocampo MD at [facility] Surgery [place] Bone/Tiss ue/Biolog ic Right: Eye [employer] 07/16/2021 [id number] / / [id number] Insurance BLUE PLUS BLUE PLUS Care Teams Recorder Gravity Prospecting Relationship Specialty Start Date End Date Skinny Ruvalcaba MD PCP - General Family Practice 05/15/17 Ihsan Arriaza MD Internal Medicine 02/05/16 Jerod Groves MD Ophthalmology 02/05/16
--- NOTE | 2024-05-16 08:03 | W.ANESCHARGE ---
Anesthesia Charges Start Date/Time Anesthesia Start Date: 05/16/24 Anesthesia Start Time: 07:18 Stop Date/Time Anesthesia Stop Date: 05/16/24 Anesthesia Stop Time: 07:46
--- NOTE | 2024-05-16 08:56 | W.ANESCHARGE ---
Anesthesia Charges Start Date/Time Anesthesia Start Date: 05/16/24 Anesthesia Start Time: 07:18 Stop Date/Time Anesthesia Stop Date: 05/16/24 Anesthesia Stop Time: 07:46
== END 2024-05-16 06:35 | disposition home or self-care (01) ==
LOC: OP CLINIC 06:34
PROVIDERS: PCP Internal Medicine; Visit Provider Surgery
DX: Z12.11 Encounter for screening for malignant neoplasm of colon (principal); D12.2 Benign neoplasm of ascending colon; D12.4 Benign neoplasm of descending colon; Z86.0100 Personal history of colon polyps, unspecified
CPT/HCPCS: 00811; 45385; 88305; J2704

== ENCOUNTER 2024-09-27 13:50 | Outpatient (CLI) | payer MEDICARE, BC, SELFPAY | END 2024-09-27 13:51 | disposition home or self-care (01) | LOC: NFLDREF 09-30 03:07 | PROVIDERS: PCP Internal Medicine; Referring Provider Internal Medicine; Visit Provider Internal Medicine | DX: I10 Essential (primary) hypertension (principal); E78.5 Hyperlipidemia, unspecified; Z12.5 Encounter for screening for malignant neoplasm of prostate | CPT/HCPCS: 80053; 80061; G0103 ==

== ENCOUNTER 2024-10-16 09:43 | Outpatient (CLI) | payer MEDICARE, BC, SELFPAY | END 2024-10-16 09:44 | disposition home or self-care (01) | LOC: NFLDREF 09:44 | PROVIDERS: PCP Internal Medicine; Visit Provider Internal Medicine | DX: E05.90 Thyrotoxicosis, unspecified without thyrotoxic crisis or storm (principal) | CPT/HCPCS: 84443 ==